=== PATIENT | female | born 1975 | race Caucasian/White ===

== ENCOUNTER → 2016-12-19 | Outpatient (CLI) | payer OTHER ==
[~2016-12-19] MED LIST: CITA20TA4 PO; LEVO100T7 PO; METR500T PO
[2016-12-22 14:26] LABS: HEPATITIS C VIRAL RNA BY PCR <15 NOT DETECTED IU/ML (<15); HEPATITIS C VIRAL RNA(LOG) PCR <1.18 NOT DETECTED LOG IU/ML (<1.18)
== END | disposition home or self-care (01) ==
LOC: C.LAB1850 15:25
PROVIDERS: ATTEND Internal Medicine Infectious Disease
DX: B19.20 Unspecified viral hepatitis C without hepatic coma (principal)

== ENCOUNTER 2017-09-28 09:08 | Emergency (ER) | payer OTHER ==
[~2017-09-28] VITALS: Ht 167.6 cm; Wt 89.8 kg
[2017-09-28 09:13] VITALS: TEMP 37; Ht 167.6 cm; Wt 89.8 kg
[2017-09-28 09:23] VITALS: O2SAT 94
[2017-09-28] MEDS ORDERED: LEVO125T5 PO (09:40)
[2017-09-28] MEDS ORDERED: LORA0.5T12 PO (09:40)
[2017-09-28 09:53] LABS: MEAN CELL VOLUME 86.3 fL (80-100); MEAN CORPUSCULAR HEMOGLOBIN 28.8 pg (25-34); MEAN CORPUSCULAR HGB CONC 33.3 g/dl (32-36); MEAN PLATELET VOLUME 10.9 fL (7.4-10.4); PLATELET COUNT 213 K/uL (130-400); RED CELL DISTRIBUTION WIDTH CV 14.2 % (11.5-14.5); RED CELL DISTRIBUTION WIDTH SD 44.4 fL (36.4-46.3); WHITE BLOOD COUNT 6.94 K/uL (4.8-10.8)
--- NOTE | 2017-09-28 09:55 | EMERGENCY ROOM VISIT NOTE ---
History Report prepared by Jojo: Juan Larry Under the Supervision of: Dr. Alex Hart M.D. First contact with patient: 09:31 Chief Complaint: ANXIETY Stated Complaint: ANXIETYCHEST/SHOULDER PAIN History of Present Illness The patient is a 42 year old female who presents to the Emergency Room with complaints of left sided chest and shoulder pain that she has been experiencing intermittently for the past week. The patient described her chest/shoulder pain as a "tightness" and "pressure." The episodes would last for about 15 minutes until taking a Lorazepam, which would improve the symptoms. She has the Lorazepam for anxiety. The patient did not notice that the chest pain onset with exertion, and the pain could onset when she was simply sitting at work. She added that she could have been mildly short of breath, because the pain would improve when she stepped outside to take a couple deep breaths. She denies any long trips recently. She also denies any personal history of cardiac illness or blood clots. His mother did have a heart attack (at 50 years of age) and brain aneurysm. She has never had any cardiac work-up herself. Source of History: patient Onset: 1 week Position: chest (left), shoulder (left) Quality: pressure, other (tightness) Timing: intermittent Modifying Factors (Relieving): other (Lorazepam) Review of Systems See HPI for pertinent positives & negatives. A total of 10 systems reviewed and were otherwise negative. Past Medical & Surgical Medical Problems: (1) History of anxiety Surgical Problems: (1) Cholecystectomy planned History of anxiety Family History FH: heart disease Social History Smoking Status: Light Tobacco Smoker Drug Use: none Occupation Status: employed Current/Historical Medications Scheduled Levothyroxine Sodium (Levothyroxine Sodium), 125 MCG PO DAILY Lorazepam (Lorazepam), 0.5 MG PO NEEDED Scheduled PRN Lorazepam (Ativan), 1 MG PO TID PRN for Anxiety/Agitation Allergies Coded Allergies: No Known Allergies (Verified Allergy, Unknown, 06/29/03) Physical Exam Vital Signs Date Time Temp Pulse Resp B/P (MAP) Pulse Ox O2 Delivery O2 Flow Rate FiO2 09/28/17 10:09 97 18 141/91 96 Room Air 09/28/17 09:47 120 09/28/17 09:23 94 Room Air 09/28/17 09:13 37.0 108 18 142/84 98 Room Air Physical Exam GENERAL: Patient is anxious appearing, in no acute distress HEENT: No acute trauma, normocephalic atraumatic, mucous membranes moist, no nasal congestion, no scleral icterus. NECK: No stridor, no adenopathy, no meningismus, trachea is midline. LUNGS: Clear to auscultation bilaterally, no wheeze, no rhonchi, breath sounds equal. HEART: Mildly tachycardic, no murmurs, regular rhythm. ABDOMEN: Soft, nontender, bowel sounds positive, no hernias, no peritonitis. EXTREMITIES: No cyanosis or edema, full range of motion of all the joints without pain or difficulty, no signs for acute trauma. NEUROLOGIC: Oriented x 3, no acute motor or sensory deficits, no focal weakness. SKIN: No rash, no jaundice, no diaphoresis. Medical Decision & Procedures ER Provider Diagnostic Interpretation: Radiology results as stated below per my review and radiologist interpretation: CHEST ONE VIEW PORTABLE CLINICAL HISTORY: Chest pain. COMPARISON STUDY: No previous studies for comparison. FINDINGS: Patient is rotated. Lung volumes are normal. Lungs are clear. No pneumothorax or pleural effusion is noted. Cardiac size is normal. Mediastinal contours are normal. There is no evidence for pulmonary edema. IMPRESSION: No acute cardiopulmonary findings. Electronically signed by: Reji Gilliam M.D. 09/28/2017 9:54 AM Dictated Date/Time: 09/28/2017 9:53 AM Laboratory Results 09/28/17 09:34 09/28/17 09:34 Test 09/28/17 09:34 09/28/17 10:07 Red Blood Count 4.52 M/uL (4.2-5.4) Mean Corpuscular Volume 86.3 fL (80-100) Mean Corpuscular Hemoglobin 28.8 pg (25-34) Mean Corpuscular Hemoglobin Concent 33.3 g/dl (32-36) RDW Standard Deviation 44.4 fL (36.4-46.3) RDW Coefficient of Variation 14.2 % (11.5-14.5) Mean Platelet Volume 10.9 fL (7.4-10.4) Prothrombin Time 10.1 SECONDS (9.0-12.0) Prothromb Time International Ratio 1.0 (0.9-1.1) Activated Partial Thromboplast Time 26.6 SECONDS (21.0-31.0) Partial Thromboplastin Ratio 1.0 Anion Gap 10.0 mmol/L (3-11) Est Creatinine Clear Calc Drug Dose 97.6 ml/min Estimated GFR () 99.4 Estimated GFR (Non- 85.8 BUN/Creatinine Ratio 10.4 (10-20) Calcium Level 8.7 mg/dl (8.5-10.1) Total Bilirubin 0.4 mg/dl (0.2-1) Aspartate Amino Transf (AST/SGOT) 24 U/L (15-37) Alanine Aminotransferase (ALT/SGPT) 48 U/L (12-78) Alkaline Phosphatase 99 U/L (45-117) Troponin I < 0.015 ng/ml (0-0.045) Total Protein 7.8 gm/dl (6.4-8.2) Albumin 3.8 gm/dl (3.4-5.0) Globulin 4.0 gm/dl (2.5-4.0) Albumin/Globulin Ratio 1.0 (0.9-2) Bedside D-Dimer 242 ng/mlFEU (0-450) Laboratory results reviewed by me. ECG Per My Interpretation Indication: chest pain Rate (beats per minute): 105 Rhythm: sinus tachycardia Findings: other (No PVCs, No ST elevation or depression) ED Course 09: The patient was evaluated in room B3B. A complete history and physical exam was performed. 1024: Reevaluated the patient. Discussed results and discharge instructions: she verbalized understanding and agreement. The patient is ready for discharge. Medical Decision Differential diagnosis includes; anxiety, musculoskeletal pain, pulmonary embolism, aortic dissection, pneumonia, pneumothorax, cardiac ischemia. There is no leukocytosis or concerning anemia. No significant electrolyte abnormality, kidney failure or hepatitis. There is no coagulopathy. EKG shows a sinus tachycardia, no acute ischemia. Cardiac enzyme testing 1 is not consistent with acute cardiac injury. Chest x-ray does not show mediastinal widening, pneumonia or pneumothorax. D-dimer testing is negative. With a negative d-dimer and my low suspicion for PE, I will stop the workup for this diagnosis. The patient presents with a week of intermittent chest pain which responds to Ativan. She has a history of anxiety. She seemed anxious during our evaluation. She has not had any exertional symptoms. Her pain comes on often at rest. Patient was reassured by her testing. I think it is reasonable for her to be discharged. I did prescribe a few Ativan to use for anxiety. She will talk with her family doctor's office for a follow-up appointment. I did suggest a stress test for even further cardiac workup. If she has any exertional symptoms , worsening pain or worsening symptoms, she will report back for reassessment. [place] Drug Monitoring Program Search Results: no issues identified Medication Reconcilliation Current Medication List: was personally reviewed by me Blood Pressure Screening Patient's blood pressure: Elevated blood pressure Blood pressure disposition: Referred to PCP Impression Primary Impression: Left sided chest pain Additional Impression: Anxiety Scribe Attestation The scribe's documentation has been prepared under my direction and personally reviewed by me in its entirety. I confirm that the note above accurately reflects all work, treatment, procedures, and medical decision making performed by me. Departure Information Dispostion Home / Self-Care Prescriptions Lorazepam (ATIVAN) 1 Mg Tab 1 MG PO TID Y for Anxiety/Agitation, #10 TAB Prov: Alex Hart M.D. 09/28/17 Referrals No Doctor, Assigned (PCP) Forms HOME CARE DOCUMENTATION FORM, IMPORTANT VISIT INFORMATION Patient Instructions My [facility] Additional Instructions talk with your [facility] md for a check up and possible stress test may use ativan 1 tab as needed for anxiety return for worsening symptoms, if feeling suicidal return for any exertional pain or trouble breathing heart testing today was all ok Problem Qualifiers
[2017-09-28 10:05] LABS: PTT PATIENT 26.6 SECONDS (21.0-31.0)
[2017-09-28 10:06] LABS: ALBUMIN 3.8 gm/dl (3.4-5.0); ALT/SGPT 48 U/L (12-78); AST/SGOT 24 U/L (15-37); BLOOD UREA NITROGEN 9 mg/dl (7-18); CALCIUM 8.7 mg/dl (8.5-10.1); CARBON DIOXIDE 22 mmol/L (21-32); CREATININE 0.83 mg/dl (0.60-1.20); GLUCOSE 143 mg/dl (70-99); POTASSIUM 3.6 mmol/L (3.5-5.1); SODIUM 138 mmol/L (136-145)
[2017-09-28 10:11] LABS: ALKALINE PHOSPHATASE 99 U/L (45-117); TOTAL PROTEIN 7.8 gm/dl (6.4-8.2)
[2017-09-28] MEDS ORDERED: ATV/1 PO (10:33)
[2017-09-28 11:13] VITALS: BP 131/74; PULSE 85; O2SAT 97
== END 2017-09-28 11:37 | disposition home or self-care (01) ==
LOC: C.EDB 09:10
DX: R07.9 Chest pain, unspecified (principal); F41.9 Anxiety disorder, unspecified; M25.512 Pain in left shoulder; F17.200 Nicotine dependence, unspecified, uncomplicated

== ENCOUNTER 2019-03-13 20:11 | Observation (INO) ==
[2019-03-13] MEDS ORDERED: HALOPERIDOL LACTATE 5 MG/ML 1 ML VIAL IM STA (21:07)
[2019-03-13] MEDS ORDERED: LORazepam 2 MG/ML VIAL (IM USE) IM STA (21:07)
[2019-03-13] MEDS ORDERED: LORazepam 1 MG TAB SL STA (21:08)
[2019-03-13] MEDS ORDERED: HALOPERIDOL 10 MG TABLET PO STA (21:08)
[2019-03-13] MEDS ORDERED: BENZTROPINE MESYLATE 1 MG/ML 2 ML AMP IM STA (21:11)
[2019-03-13 21:37] LABS: Appearance Urine Clear (Clear); Bilirubin Urine Negative (Negative); Blood Urine Negative (Negative); Color Urine Yellow; Glucose Urine UA 1+ (Negative); Ketones Urine Negative (Negative); Leukocyte Esterase Urine Negative (Negative); Nitrite Urine Negative (Negative); Protein Urine Negative (Negative); Specific Gravity Urine 1.012 (1.000-1.030); Urobilinogen Urine Negative (Negative)
[2019-03-13 22:04] LABS: Amphetamines+Metham, Urine Neg (Neg); Barbiturates, Urine Neg (Neg); Benzodiazepine, Urine Neg (Neg); Cocaine, Urine Neg (Neg); MDMA (Ecstacy), Urine Neg (Neg); Methadone, Urine Neg (Neg); Opiate, Urine Neg (Neg); Phencyclidine, Urine Neg (Neg)
[2019-03-13 22:14] LABS: Basophils # (auto) 0.02 K/uL (0-0.2); Basophils % (auto) 0.2 %; Eosinophils # (auto) 0.01 K/uL (0-0.5); Eosinophils % (auto) 0.1 %; Hematocrit (blood only) 34.1 % (37-47); Hemoglobin 10.7 g/dL (12.0-16.0); Immature Granulocytes # (auto) 0.02 K/uL (0.00-0.02); Immature Granulocytes % (auto) 0.2 %; Lymphocytes # (auto) 0.84 K/uL (1.2-3.4); Lymphocytes % (auto) 8.6 %; Mean Corpuscular Hgb Conc 31.4 g/dL (32-36); Mean Corpuscular Volume 76.6 fL (80-100); Mean Platelet Volume 11.1 fL (7.4-10.4); Monocytes % (auto) 4.1 %; Neutrophils # (auto) 8.48 K/uL (1.4-6.5); Neutrophils % (auto) 86.8 %; Platelet Count 277 K/uL (130-400); RDW Coefficient of Variation 16.8 % (11.5-14.5); RDW Standard Deviation 47.7 fL (36.4-46.3); Red Blood Count 4.45 M/uL (4.2-5.4); White Blood Count 9.77 K/uL (4.8-10.8)
--- NOTE | 2019-03-13 22:33 | CT Scan Report ---
CT SCAN OF THE BRAIN WITHOUT IV CONTRAST CLINICAL HISTORY: Change in mental status. COMPARISON STUDY: No priors. TECHNIQUE: Unenhanced axial CT scan of the brain is performed from the vertex to the skull base. A d ose lowering technique was utilized adhering to the principles of ALARA. The patient was scanned twic e due to motion artifact. CT DOSE: 1074.96 mGy.cm FINDINGS: Brain parenchyma: The brain parenchyma is normal in appearance. There is no hemorrhage, mass effect, or evidence of acute territorial ischemia by CT criteria. Franklin-white matter differentiation is preser milagros. No extra-axial fluid collection is seen. Ventricles, sulci, cisterns: Normal in configuration. Intracranial vasculature: The visualized intracranial vasculature at the skull base is normal in appe arance. Calvarium: Unremarkable. Sinuses and mastoids: The visualized paranasal sinuses are clear. The mastoid air cells are well pneu matized. Orbits: The bony orbits are grossly intact. IMPRESSION: There is no hemorrhage, mass effect, or evidence of acute territorial ischemia by CT eneida herrera. Electronically signed by: Alex Anderson M.D. 03/13/2019 10:32 PM
[2019-03-13 22:35] LABS: Albumin Level 3.8 gm/dl (3.4-5.0); BUN Creatinine Ratio 7.8 (10-20); Calcium 8.3 mg/dl (8.5-10.1); Creatinine Clr Calc Pharmacy 69.1 ml/min; Est GFR (African American) 63.8; Est GFR (Non-African American) 55.1; Potassium 3.1 mmol/L (3.5-5.1)
[2019-03-13 22:44] LABS: Acetaminophen < 2 ug/ml (10-30); Salicylate < 1.7 mg/dl (2.8-20)
[2019-03-13 22:45] LABS: Albumin Globulin Ratio 0.9 (0.9-2); Bilirubin,Total 0.4 mg/dl (0.2-1); Globulin 4.1 gm/dl (2.5-4.0); Total Protein 7.9 gm/dl (6.4-8.2)
[2019-03-13] MEDS ORDERED: SODIUM CHLORIDE 0.9% 1000ML 250 ML IV ONE (22:59)
[2019-03-13] MEDS ORDERED: SODIUM CHLORIDE 0.9% 1000ML 500 ML IV ONE (22:59)
[2019-03-13 23:29] LABS: Allen Test POS (Pos); Base Excess ABG -1.6 mEq/L (-9-1.8); HCO3 ABG 22 mmol/L (19-24); Oxygen Saturation ABG 97.8 % (90-95); PCO2 ABG 31 mmHg (35-46); PO2 ABG 96 mm/Hg (80-95); pH ABG 7.46 (7.35-7.45)
[2019-03-13 23:59] LABS: Beta-Hydroxybutyrate 1.47 mg/dl (0.2-2.81)
[2019-03-14] MEDS: POTASSIUM CHLORIDE / WTR 10 MEQ/100 ML PLCT IV SCH ×2 (00:22→01:11)
[2019-03-14] MEDS: SODIUM CHLORIDE 0.9% 1000ML 1,000 ML IV SCH ×2 (00:22→01:12)
[2019-03-14] MEDS ORDERED: POTASSIUM CHLORIDE 20 MEQ TABCR PO STA (00:27)
[2019-03-14] MEDS ORDERED: BENZTROPINE MESYLATE 1 MG/ML 2 ML AMP IV STA (02:06)
--- NOTE | 2019-03-14 02:06 | Emergency Department Note ---
Entered by Antwan Pearce acting as a scribe for Devaughn Bhatia MD History of Present Illness General Chief complaint: Mental Health Evaluation Time Seen by Provider: 03/13/19 20:55 Source: patient, family (brother) and other (psych case management) History of Present Illness Onset (ago): day(s) (today) Location: head Pain Consistency: + constant Quality: + other (paranoia) Associated symptoms: + other (Positive for a decreased amount of sleep. Negative for suicidal ideations and homicidal ideations.) The patient is a 43 year old female who presents to the emergency department with complaints of constant paranoia beginning today. Per psych assistant case manager, the patient was brought in by police. The patient states that she is paranoid and she believes that people at work are trying to get her to lose her job. She notes that she does not feel safe at her workplace because people are trying to make her feel crazy. She reports that her computer and phone are being hacked and she states that her identity has been stolen on [employer]. The patient states that she has not been getting a lot of sleep lately. Per assistant case manager, the patient does not have any SI/HI. Per brother, the patient has been having increased paranoia for the last 6 days. He notes that the patient has not had any similar episodes of paranoia in the past. 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) Anxiety no meds Hypothyroidism Left sided abdominal pain Surgical History History of cholecystectomy History of dilatation and curettage History of tonsillectomy and adenoidectomy Family History Mother Family history of diabetes mellitus Family hx colonic polyps Other No family history of adverse response to anesthesia Social History Preferred Language: Telugu Communication Ability: Effective Vp Genetic Required: No Beliefs That Will Affect Care: None Current Living Situation: Family and Significant Other Current Living Situation Comment: Lives with daughter and significant other Feels Safe at Home: Yes Smoking Status: Never smoker Second Hand Exposure: No ; Hx Alcohol Use: No Hx Substance Use: No Review of Systems See HPI for pertinent positives & negatives. and A total of 10 systems reviewed and were otherwise negative Physical Exam Vital Signs Vital Signs - 24 hr 03/13/19 20:21 03/13/19 22:30 03/14/19 00:03 Temperature 36.6 C Temperature Source Oral Sepsis Recent Fever Within 48 Hours No Sepsis New/Unexplained Change in Mental Status No Sepsis Action Taken by Nursing No Action Required Pulse Rate 115 H Pulse Rate [Finger] 93 H 82 Pulse Rhythm Regular Pulse Rhythm [Finger] Regular Regular Pulse Strength Normal Pulse Strength [Finger] Normal Respiratory Rate 18 18 16 Respiratory Effort / Characteristics Non-Labored Spontaneous Non-Labored Spontaneous Non-Labored Spontaneous Respiratory Depth Normal Normal Normal Respiratory Pattern Regular Regular Regular Blood Pressure 181/85 H Blood Pressure [Left Arm] 123/62 131/85 Blood Pressure Mean 117 Blood Pressure Mean [Left Arm] 82 100 Blood Pressure Position Sitting Blood Pressure Position [Left Arm] Lying Pulse Oximetry 97 97 92 Oxygen Delivery Method Room Air Room Air Room Air 03/14/19 01:58 Temperature Temperature Source Sepsis Recent Fever Within 48 Hours Sepsis New/Unexplained Change in Mental Status Sepsis Action Taken by Nursing Pulse Rate Pulse Rate [Finger] 108 H Pulse Rhythm Pulse Rhythm [Finger] Pulse Strength Pulse Strength [Finger] Respiratory Rate 18 Respiratory Effort / Characteristics Non-Labored Spontaneous Respiratory Depth Normal Respiratory Pattern Regular Blood Pressure Blood Pressure [Left Arm] 127/84 Blood Pressure Mean Blood Pressure Mean [Left Arm] 98 Blood Pressure Position Blood Pressure Position [Left Arm] Pulse Oximetry 100 Oxygen Delivery Method Room Air GENERAL: Awake, alert, noncooperative, flight of thought, kicking, fighting, punching. HENT: Normocephalic, atraumatic. Oropharynx unremarkable. EYES: Normal conjunctiva. Sclera non-icteric. NECK: Supple. No nuchal rigidity. FROM. No JVD. RESPIRATORY: Clear to auscultation. CARDIAC: Regular rate, normal rhythm. Extremities warm and well perfused. Pulses equal. ABDOMEN: Soft, non-distended. No tenderness to palpation. No rebound or guarding. No masses. RECTAL: Deferred. MUSCULOSKELETAL: Chest examination reveals no tenderness. The back is symmetrical on inspection without obvious abnormality. There is no CVA tenderness to palpation. No joint edema. LOWER EXTREMITIES: Calves are equal size bilaterally and non-tender. No edema. No discoloration. NEURO: Normal sensorium. No sensory or motor deficits noted. SKIN: No rash or jaundice noted. Course 2100: The patient was evaluated in room A5. A complete history and physical exam was performed. 2133: The patient was sedated. 2304: I rechecked the patient. 0230: The patient was signed out to Dr. Ho at the change of shift. Administered Medications Discontinued Medications Benztropine Mesylate (Cogentin) 2 mg IM NOW STA Stop: 03/13/19 21:12 Last Admin: 03/13/19 22:10 Dose: 2 mg Documented by: [id number] Haloperidol (Haldol) 10 mg PO NOW STA Stop: 03/13/19 21:09 Last Admin: 03/13/19 21:30 Dose: Not Given Documented by: [id number] Haloperidol Lactate (Haldol) 10 mg IM NOW STA Stop: 03/13/19 21:08 Last Admin: 03/13/19 21:30 Dose: 10 mg Documented by: [id number] Sodium Chloride (Nss 1000ml) 500 mls @ 999 mls/hr IV .Q31M ONE Stop: 03/13/19 23:29 Last Admin: 03/14/19 00:23 Dose: 999 mls/hr Documented by: [id number] Sodium Chloride (Nss 1000ml) 1,000 mls @ 999 mls/hr IV .Q1H1M AKANKSHA Stop: 03/14/19 00:59 Last Admin: 03/14/19 01:12 Dose: 999 mls/hr Documented by: [id number] Infusion: 03/14/19 01:12 Dose: 999 mls/hr Documented by: [id number] Admin: 03/14/19 00:22 Dose: 999 mls/hr Documented by: [id number] Sodium Chloride (Nss 1000ml) 250 mls @ 999 mls/hr IV .Q16M ONE Stop: 03/13/19 23:14 Last Infusion: 03/14/19 00:40 Dose: 0 mls/hr Documented by: [id number] Admin: 03/14/19 00:23 Dose: 999 mls/hr Documented by: [id number] Potassium Chloride (K Damian / Wtr) 10 meq in 100 mls @ 100 mls/hr IV Q1H AKANKSHA Stop: 03/14/19 00:59 Last Infusion: 03/14/19 01:58 Dose: 0 mls/hr Documented by: [id number] Admin: 03/14/19 01:11 Dose: 100 mls/hr Documented by: [id number] Infusion: 03/14/19 01:11 Dose: 100 mls/hr Documented by: [id number] Admin: 03/14/19 00:22 Dose: 100 mls/hr Documented by: [id number] Lorazepam (Ativan) 2 mg IM NOW STA Stop: 03/13/19 21:08 Last Admin: 03/13/19 21:30 Dose: 2 mg Documented by: [id number] Lorazepam (Ativan) 2 mg SL NOW STA Stop: 03/13/19 21:09 Last Admin: 03/13/19 21:30 Dose: Not Given Documented by: [id number] Potassium Chloride (Klor-Con M20) 40 meq PO NOW STA Stop: 03/14/19 00:28 Last Admin: 03/14/19 01:48 Dose: 40 meq Documented by: [id number] Medical Decision Making Differential Diagnosis Differential diagnosis: Etiologies such as psychiatric disorder, infection, hypoglycemia, electrolyte abnormalities, cardiac sources, intracerebral event, toxicological process, neurologic disorder, as well as others were entertained. Medical Records Attestation: I reviewed the patient's medical records. Home Medications Current Medication List: was personally reviewed by me Laboratory Data Attestation: I reviewed the patient's lab results. Result diagrams: 03/13/19 22:02 03/13/19 22:02 Lab Results 03/13/19 03/13/19 03/13/19 Range/Units 20:30 20:30 22:02 WBC 9.77 (4.8-10.8) K/uL RBC 4.45 (4.2-5.4) M/uL Hgb 10.7 L (12.0-16.0) g/dL Hct 34.1 L (37-47) % MCV 76.6 L (80-100) fL MCH 24.0 L (25-34) pg MCHC 31.4 L (32-36) g/dL RDW Std Deviation 47.7 H (36.4-46.3) fL RDW Coeff of John 16.8 H (11.5-14.5) % Plt Count 277 (130-400) K/uL MPV 11.1 H (7.4-10.4) fL Immature Gran % (Auto) 0.2 % Neut % (Auto) 86.8 % Lymph % (Auto) 8.6 % [place] % (Auto) 4.1 % Eos % (Auto) 0.1 % Baso % (Auto) 0.2 % Immature Gran # (Auto) 0.02 (0.00-0.02) K/uL Neut # (Auto) 8.48 H (1.4-6.5) K/uL Lymph # (Auto) 0.84 L (1.2-3.4) K/uL [place] # (Auto) 0.40 (0.11-0.59) K/uL Eos # (Auto) 0.01 (0-0.5) K/uL Baso # (Auto) 0.02 (0-0.2) K/uL ABG pH (7.35-7.45) ABG pCO2 (35-46) mmHg ABG pO2 (80-95) mm/Hg ABG HCO3 (19-24) mmol/L ABG O2 Saturation (90-95) % ABG Base Excess (-9-1.8) mEq/L Rainer Test (Pos) Barometric Pressure mm/Hg Oxygen Given Sodium (136-145) mmol/L Potassium (3.5-5.1) mmol/L Chloride (98-107) mmol/L Carbon Dioxide (21-32) mmol/L Anion Gap (3-11) BUN (7-18) mg/dl Creatinine (0.6-1.2) mg/dl Est Cr Clr Drug Dosing ml/min Est GFR ( Amer) Est GFR (Non-Af Amer) BUN/Creatinine Ratio (10-20) Glucose (70-99) mg/dl Calcium (8.5-10.1) mg/dl Total Bilirubin (0.2-1) mg/dl AST (15-37) U/L ALT (12-78) U/L Alkaline Phosphatase (45-117) U/L Total Protein (6.4-8.2) gm/dl Albumin (3.4-5.0) gm/dl Globulin (2.5-4.0) gm/dl Albumin/Globulin Ratio (0.9-2) Beta-Hydroxybutyric Acd (0.2-2.81) mg/dl TSH (0.300-4.500) uIu/ml Urine Color Yellow Urine Appearance Clear (Clear) Urine pH 6.0 (4.5-7.5) Ur Specific [place] 1.012 (1.000-1.030) Urine Protein Negative (Negative) Urine Glucose (UA) 1+ H (Negative) Urine Ketones Negative (Negative) Urine Blood Negative (Negative) Urine Nitrite Negative (Negative) Urine Bilirubin Negative (Negative) Urine Urobilinogen Negative (Negative) Ur Leukocyte Esterase Negative (Negative) Salicylates (2.8-20) mg/dl Urine Opiates Screen Neg (Neg) Ur Methadone, Qual Neg (Neg) Acetaminophen (10-30) ug/ml Urine Barbiturates Neg (Neg) Ur Phencyclidine (PCP) Neg (Neg) U Amphetamin/Meth Scrn Neg (Neg) MDMA (Ecstasy) Screen Neg (Neg) U Benzodiazepines Scrn Neg (Neg) Ur Cocaine Metabolite Neg (Neg) U Marijuana (THC) Screen Neg (Neg) Ethyl Alcohol mg/dL (0-3) mg/dl 03/13/19 03/13/19 03/13/19 Range/Units 22:02 22:02 22:02 WBC (4.8-10.8) K/uL RBC (4.2-5.4) M/uL Hgb (12.0-16.0) g/dL Hct (37-47) % MCV (80-100) fL MCH (25-34) pg MCHC (32-36) g/dL RDW Std Deviation (36.4-46.3) fL RDW Coeff of John (11.5-14.5) % Plt Count (130-400) K/uL MPV (7.4-10.4) fL Immature Gran % (Auto) % Neut % (Auto) % Lymph % (Auto) % [place] % (Auto) % Eos % (Auto) % Baso % (Auto) % Immature Gran # (Auto) (0.00-0.02) K/uL Neut # (Auto) (1.4-6.5) K/uL Lymph # (Auto) (1.2-3.4) K/uL [place] # (Auto) (0.11-0.59) K/uL Eos # (Auto) (0-0.5) K/uL Baso # (Auto) (0-0.2) K/uL ABG pH (7.35-7.45) ABG pCO2 (35-46) mmHg ABG pO2 (80-95) mm/Hg ABG HCO3 (19-24) mmol/L ABG O2 Saturation (90-95) % ABG Base Excess (-9-1.8) mEq/L Rainer Test (Pos) Barometric Pressure mm/Hg Oxygen Given Sodium 136 (136-145) mmol/L Potassium 3.1 L (3.5-5.1) mmol/L Chloride 102 (98-107) mmol/L Carbon Dioxide 16 L (21-32) mmol/L Anion Gap 18.0 H (3-11) BUN 9 (7-18) mg/dl Creatinine 1.19 (0.6-1.2) mg/dl Est Cr Clr Drug Dosing 69.1 ml/min Est GFR ( Amer) 63.8 Est GFR (Non-Af Amer) 55.1 BUN/Creatinine Ratio 7.8 L (10-20) Glucose 299 H (70-99) mg/dl Calcium 8.3 L (8.5-10.1) mg/dl Total Bilirubin 0.4 (0.2-1) mg/dl AST 18 (15-37) U/L ALT 31 (12-78) U/L Alkaline Phosphatase 103 (45-117) U/L Total Protein 7.9 (6.4-8.2) gm/dl Albumin 3.8 (3.4-5.0) gm/dl Globulin 4.1 H (2.5-4.0) gm/dl Albumin/Globulin Ratio 0.9 (0.9-2) Beta-Hydroxybutyric Acd 1.47 (0.2-2.81) mg/dl TSH 1.970 (0.300-4.500) uIu/ml Urine Color Urine Appearance (Clear) Urine pH (4.5-7.5) Ur Specific [place] (1.000-1.030) Urine Protein (Negative) Urine Glucose (UA) (Negative) Urine Ketones (Negative) Urine Blood (Negative) Urine Nitrite (Negative) Urine Bilirubin (Negative) Urine Urobilinogen (Negative) Ur Leukocyte Esterase (Negative) Salicylates < 1.7 L (2.8-20) mg/dl Urine Opiates Screen (Neg) Ur Methadone, Qual (Neg) Acetaminophen < 2 L (10-30) ug/ml Urine Barbiturates (Neg) Ur Phencyclidine (PCP) (Neg) U Amphetamin/Meth Scrn (Neg) MDMA (Ecstasy) Screen (Neg) U Benzodiazepines Scrn (Neg) Ur Cocaine Metabolite (Neg) U Marijuana (THC) Screen (Neg) Ethyl Alcohol mg/dL < 3.0 (0-3) mg/dl 03/13/19 03/13/19 Range/Units 23:15 23:15 WBC (4.8-10.8) K/uL RBC (4.2-5.4) M/uL Hgb (12.0-16.0) g/dL Hct (37-47) % MCV (80-100) fL MCH (25-34) pg MCHC (32-36) g/dL RDW Std Deviation (36.4-46.3) fL RDW Coeff of John (11.5-14.5) % Plt Count (130-400) K/uL MPV (7.4-10.4) fL Immature Gran % (Auto) % Neut % (Auto) % Lymph % (Auto) % [place] % (Auto) % Eos % (Auto) % Baso % (Auto) % Immature Gran # (Auto) (0.00-0.02) K/uL Neut # (Auto) (1.4-6.5) K/uL Lymph # (Auto) (1.2-3.4) K/uL [place] # (Auto) (0.11-0.59) K/uL Eos # (Auto) (0-0.5) K/uL Baso # (Auto) (0-0.2) K/uL ABG pH 7.46 H (7.35-7.45) ABG pCO2 31 L (35-46) mmHg ABG pO2 96 H (80-95) mm/Hg ABG HCO3 22 (19-24) mmol/L ABG O2 Saturation 97.8 H (90-95) % ABG Base Excess -1.6 (-9-1.8) mEq/L Rainer Test POS (Pos) Barometric Pressure 730.9 mm/Hg Oxygen Given ROOM AIR Sodium (136-145) mmol/L Potassium (3.5-5.1) mmol/L Chloride (98-107) mmol/L Carbon Dioxide (21-32) mmol/L Anion Gap (3-11) BUN (7-18) mg/dl Creatinine (0.6-1.2) mg/dl Est Cr Clr Drug Dosing ml/min Est GFR ( Amer) Est GFR (Non-Af Amer) BUN/Creatinine Ratio (10-20) Glucose (70-99) mg/dl Calcium (8.5-10.1) mg/dl Total Bilirubin (0.2-1) mg/dl AST (15-37) U/L ALT (12-78) U/L Alkaline Phosphatase (45-117) U/L Total Protein (6.4-8.2) gm/dl Albumin (3.4-5.0) gm/dl Globulin (2.5-4.0) gm/dl Albumin/Globulin Ratio (0.9-2) Beta-Hydroxybutyric Acd Cancelled (0.2-2.81) mg/dl TSH (0.300-4.500) uIu/ml Urine Color Urine Appearance (Clear) Urine pH (4.5-7.5) Ur Specific [place] (1.000-1.030) Urine Protein (Negative) Urine Glucose (UA) (Negative) Urine Ketones (Negative) Urine Blood (Negative) Urine Nitrite (Negative) Urine Bilirubin (Negative) Urine Urobilinogen (Negative) Ur Leukocyte Esterase (Negative) Salicylates (2.8-20) mg/dl Urine Opiates Screen (Neg) Ur Methadone, Qual (Neg) Acetaminophen (10-30) ug/ml Urine Barbiturates (Neg) Ur Phencyclidine (PCP) (Neg) U Amphetamin/Meth Scrn (Neg) MDMA (Ecstasy) Screen (Neg) U Benzodiazepines Scrn (Neg) Ur Cocaine Metabolite (Neg) U Marijuana (THC) Screen (Neg) Ethyl Alcohol mg/dL (0-3) mg/dl Imaging Data Radiologist's Impression: Radiology results as stated below per my review and the radiologist's interpretation: CT SCAN OF THE BRAIN WITHOUT IV CONTRAST FINDINGS: Brain parenchyma: The brain parenchyma is normal in appearance. There is no hemorrhage, mass effect, or evidence of acute territorial ischemia by CT criteria. [place]-white matter differentiation is preserved. No extra-axial fluid collection is seen. Ventricles, sulci, cisterns: Normal in configuration. Intracranial vasculature: The visualized intracranial vasculature at the skull base is normal in appearance. Calvarium: Unremarkable. Sinuses and mastoids: The visualized paranasal sinuses are clear. The mastoid air cells are well pneumatized. Orbits: The bony orbits are grossly intact. IMPRESSION: There is no hemorrhage, mass effect, or evidence of acute territorial ischemia by CT criteria. Electronically signed by: Alex Anderson M.D. 03/13/2019 10:32 PM Blood Pressure Blood Pressure Findings: Normal blood pressure Blood Pressure Disposition: did not require urgent referral MDM Narrative This is a 43-year-old female who presents the emergency department acutely paranoid. The patient is talking in circles and not making any sense however she is also non-cooperative. For this reason I felt it best to sedate the patient so that we could obtain laboratory work as well as scans. She was given 10 of Haldol and 2 of Ativan here in the emergency department. Repeat examination revealed improvement in the patient's symptoms. After talking with the patient's family the patient is a diabetic. It appears that the patient has not been sleeping over the past week or so. She was placed in a bed and laboratory work was able to be obtained. The patient's potassium was found to be low therefore she was given IV potassium along with normal saline bolus. I was originally concerned that the patient may be in DKA however a ABG was obtained which showed the patient to not be acidotic. I suspect her low CO2 was actually from hyperventilation. She also has a normal CAT scan of the head. I did discuss the case with the hospitalist service who was kind enough to see the patient. She was also independently evaluated by case management as well as 3 S. Impression & Plan Mood disorder, Acute hypokalemia, Acute hyperglycemia Discharge Plan Visit Data Chief Complaint: Mental Health Evaluation ED Provider: Devaughn Bhatia Discharge Problem: Mood disorder, Acute hypokalemia, Acute hyperglycemia Patient Disposition: Still a Patient Forms Stand Alone Forms: My [facility] [employer] Prescriptions Prescriptions: No Action levothyroxine 125 mcg Tablet 125 mcg PO QAM RF: 0 Referrals Referrals: Felicitas Mojica CRNP [Primary Care Provider] - The scribe's documentation has been prepared under my direction and personally reviewed by me in its entirety. I confirm that the note above accurately reflects all work, treatment, procedures, and medical decision making performed by me.
--- NOTE | 2019-03-14 02:20 | History & Physical Report ---
Date of Service March 14, 2019 Assessment & Plan (1) Anxiety: 43-year-old female was admitted on 14 March 2019 with concerns for paranoia and delusions. Anxiety, insomnia, possible paranoia and delusions: Patient is quite vague on her history, though relates significant work stressors over the past 7 to 10 days. Reported concerns that she is having her computer and phone monitored potentially by co-workers. Significant insomnia during this time as well. History of anxiety but no noted history of paranoia symptoms. - In ED, afebrile, briefly tachycardic and hypertensive (during her period of agitation), with normal room SpO2. WBC 9. UA with 1+ glucose. Negative on UDS, salicylates, and Tylenol. CT head with no acute findings. - In ED, was given Haldol 10 mg and Ativan 2 mg both IM. Also treated with Cogentin, potassium, and NS IVF boluses. - Will check a repeat BMP as well as vitamin B12 level and Lyme testing on morning labs. Consulted psychiatry. On 1:1. - Uses as needed Ativan at home. Further use per psychiatry recommendations. Anemia: Admit hemoglobin 10.7, MCV 76. Comparison is 13.0. No reported history of recent bleeding or bruising. Perhaps has iron deficiency. Can be evaluated as an outpatient. Hypokalemia: Admit potassium 3.1. Replacement provided in ED. Recheck in a.m. Pre-diabetes, elevated anion gap: October 2018 HbA1c was 6.0. Admit glucose 299 and AG 18. Serum bicarb 16. No urine ketones. ABG notes respiratory alkalosis, likely from hyperventilation. Beta hydroxybutyric acid level is normal. - In ED, treated with IV fluids. - Will check A1c and BMP on AM labs. Ongoing medical issues - Hypothyroidism: Admit TSH normal. Continue home levothyroxine. - Question of a history of hepatitis C infection. History of constipation. Code status: Full code. Diet: Regular. DVT prophy: Lovenox. PT/OT: Deferred. Disbo: Admitted for observation to [facility]. (2) Anemia: (3) Prediabetes: (4) Hypothyroidism: History of Present Illness Primary Care Provider: JAYNA Drew 43-year-old female was brought in by the police for concerns for paranoia and delusions. At the time of this H&P, the patient is s/p Haldol and Ativan for acute agitation. She is not presently sedated, though likely she is likely far more calm than she was on arrival. Patient does not volunteer any information whatsoever and is quite vague in all of her answers. Some of the history is from her boyfriend who is at bedside. - By report, the patient called the police earlier today because she was concerned that her coworkers were out to get her. Per the ED report, patient also made statements such as "people at work are trying to get me to lose my job" as well as "people are trying to make me feel crazy". Per the ED physicia n, the patient was very agitated on arrival and repeatedly stated that her coworkers were trying to get her to lose her job. Apparently she stated that she was being video recorded at work as well. - For this H&P on repeated questioning, patient (and boyfriend as adjunct information) says that there is a lot of stress going on at work for the past 7 to 10 days. It seems that either a coworker or an bankruptcy legal assistant has not been available, increasing the patient's workload such that she has been on a lot of overtime. She also is only been getting about 2 hours of sleep per night. Patient eventually did acknowledge that she thinks her coworkers may be listening in on her phone conversations and may have hacked her computer. She says she received a [employer] request about a week ago, acknowledged it, and ever since someone may have taken over her account. Patient denies any physical pain and only states that she needs to use the bathroom. She denied any thoughts of hurting herself, others, any visual or auditory hallucinations, or any history of feeling similar to the way she does right now. She says that she has taken "half a pill" of Ativan a couple of times in the past week for anxiety. She otherwise denies any acute medication use or history of substance abuse. Per patient and medical records: - Past medical history includes pre-diabetes, hypothyroidism, anxiety, constipation, question of a history of hepatitis C. - Past surgical history includes cholecystectomy, D&C, tonsillectomy and adenoidectomy. - Social history includes tobacco use. Denies alcohol and substance abuse. Allergies Allergy/AdvReac Type Severity Reaction Status Date / Time No Known Allergies Allergy Unknown Verified 02/28/19 15:15 Home Medications Home Medications Medication Instructions Recorded Confirmed Type levothyroxine 125 mcg PO QAM 12/26/18 02/28/19 History Past Med/Surg History Family History Mother Family history of diabetes mellitus Family hx colonic polyps Other No family history of adverse response to anesthesia Social History Preferred Language: Pashto Communication Ability: Effective Ink Grinder Required: No Beliefs That Will Affect Care: None Current Living Situation: Significant Other Current Living Situation Comment: Lives with daughter and significant other Feels Safe at Home: Yes Smoking Status: Former smoker Tobacco Type: cigarettes ; Do You Dip or Chew Tobacco: No ; Second Hand Exposure: No ; Hx Alcohol Use: Yes Alcohol type: beer Hx Substance Use: No Review of Systems Review of Systems: Unable to obtain ROS due to patient's current mental state as well as post sedation medications. She does deny any focal pains as well as any recent nausea/vomiting/diarrhea. Physical Exam Physical Exam: GENERAL: Awake, alert, speaks easily and comfortably but does not volunteer any information, does not appear in any physical distress HENT: Normocephalic, atraumatic. Oropharynx unremarkable. EYES: Normal conjunctiva. Sclera non-icteric. Pupils about 4 mm and equally reactive bilaterally. NECK: Inspection normal. Non-tender. Supple and full ROM. No nuchal rigidity. CARDIAC: +S1S2 regular tachycardia, no murmurs. RESPIRATORY: Clear to auscultation. No wheezes or rales. Normal respiratory effort. GI: +BS, soft, non-distended. No tenderness to palpation. No rebound or guarding. EXTREMITIES: No pedal edema or calf tenderness. Moving all extremities naturally and easily. NEURO: No gross neuro deficits. No present tremor. Psych: Good eye contact during interview. She answers questions with brief couple word answers and frequently will look towards her boyfriend as if she was looking for some level of confirmation in her answers. Most of what she says is intelligible. Answers are very vague but not necessarily tangential. She does repeat themes. Her mood/affect seems a bit on edge but otherwise calm and cooperative. She denies SI or HI. Results & Data Vital Signs (Past 12 Hours) Vital Signs Temp Pulse Pulse Resp BP BP Pulse Ox 03/14/19 01:58 108 H 18 127/84 100 03/14/19 00:03 82 16 131/85 92 03/13/19 22:30 93 H 18 123/62 97 03/13/19 20:21 36.6 C 115 H 18 181/85 H 97 Laboratory Results 03/13/19 03/13/19 03/13/19 Range/Units 23:15 23:15 22:02 WBC (4.8-10.8) K/uL RBC (4.2-5.4) M/uL Hgb (12.0-16.0) g/dL Hct (37-47) % MCV (80-100) fL MCH (25-34) pg MCHC (32-36) g/dL RDW Std Deviation (36.4-46.3) fL RDW Coeff of John (11.5-14.5) % Plt Count (130-400) K/uL MPV (7.4-10.4) fL Immature Gran % (Auto) % Neut % (Auto) % Lymph % (Auto) % Phelps % (Auto) % Eos % (Auto) % Baso % (Auto) % Immature Gran # (Auto) (0.00-0.02) K/uL Neut # (Auto) (1.4-6.5) K/uL Lymph # (Auto) (1.2-3.4) K/uL Phelps # (Auto) (0.11-0.59) K/uL Eos # (Auto) (0-0.5) K/uL Baso # (Auto) (0-0.2) K/uL ABG pH 7.46 H (7.35-7.45) ABG pCO2 31 L (35-46) mmHg ABG pO2 96 H (80-95) mm/Hg ABG HCO3 22 (19-24) mmol/L ABG O2 Saturation 97.8 H (90-95) % ABG Base Excess -1.6 (-9-1.8) mEq/L Rainer Test POS (Pos) Barometric Pressure 730.9 mm/Hg Oxygen Given ROOM AIR Sodium (136-145) mmol/L Potassium (3.5-5.1) mmol/L Chloride (98-107) mmol/L Carbon Dioxide (21-32) mmol/L Anion Gap (3-11) BUN (7-18) mg/dl Creatinine (0.6-1.2) mg/dl Est Cr Clr Drug Dosing ml/min Est GFR ( Amer) Est GFR (Non-Af Amer) BUN/Creatinine Ratio (10-20) Glucose (70-99) mg/dl Calcium (8.5-10.1) mg/dl Total Bilirubin (0.2-1) mg/dl AST (15-37) U/L ALT (12-78) U/L Alkaline Phosphatase (45-117) U/L Total Protein (6.4-8.2) gm/dl Albumin (3.4-5.0) gm/dl Globulin (2.5-4.0) gm/dl Albumin/Globulin Ratio (0.9-2) Beta-Hydroxybutyric Acd Cancelled (0.2-2.81) mg/dl TSH (0.300-4.500) uIu/ml Urine Color Urine Appearance (Clear) Urine pH (4.5-7.5) Ur Specific Rosepine (1.000-1.030) Urine Protein (Negative) Urine Glucose (UA) (Negative) Urine Ketones (Negative) Urine Blood (Negative) Urine Nitrite (Negative) Urine Bilirubin (Negative) Urine Urobilinogen (Negative) Ur Leukocyte Esterase (Negative) Salicylates (2.8-20) mg/dl Urine Opiates Screen (Neg) Ur Methadone, Qual (Neg) Acetaminophen (10-30) ug/ml Urine Barbiturates (Neg) Ur Phencyclidine (PCP) (Neg) U Amphetamin/Meth Scrn (Neg) MDMA (Ecstasy) Screen (Neg) U Benzodiazepines Scrn (Neg) Ur Cocaine Metabolite (Neg) U Marijuana (THC) Screen (Neg) Ethyl Alcohol mg/dL < 3.0 (0-3) mg/dl 03/13/19 03/13/19 03/13/19 Range/Units 22:02 22:02 22:02 WBC 9.77 (4.8-10.8) K/uL RBC 4.45 (4.2-5.4) M/uL Hgb 10.7 L (12.0-16.0) g/dL Hct 34.1 L (37-47) % MCV 76.6 L (80-100) fL MCH 24.0 L (25-34) pg MCHC 31.4 L (32-36) g/dL RDW Std Deviation 47.7 H (36.4-46.3) fL RDW Coeff of John 16.8 H (11.5-14.5) % Plt Count 277 (130-400) K/uL MPV 11.1 H (7.4-10.4) fL Immature Gran % (Auto) 0.2 % Neut % (Auto) 86.8 % Lymph % (Auto) 8.6 % Phelps % (Auto) 4.1 % Eos % (Auto) 0.1 % Baso % (Auto) 0.2 % Immature Gran # (Auto) 0.02 (0.00-0.02) K/uL Neut # (Auto) 8.48 H (1.4-6.5) K/uL Lymph # (Auto) 0.84 L (1.2-3.4) K/uL Phelps # (Auto) 0.40 (0.11-0.59) K/uL Eos # (Auto) 0.01 (0-0.5) K/uL Baso # (Auto) 0.02 (0-0.2) K/uL ABG pH (7.35-7.45) ABG pCO2 (35-46) mmHg ABG pO2 (80-95) mm/Hg ABG HCO3 (19-24) mmol/L ABG O2 Saturation (90-95) % ABG Base Excess (-9-1.8) mEq/L Rainer Test (Pos) Barometric Pressure mm/Hg Oxygen Given Sodium 136 (136-145) mmol/L Potassium 3.1 L (3.5-5.1) mmol/L Chloride 102 (98-107) mmol/L Carbon Dioxide 16 L (21-32) mmol/L Anion Gap 18.0 H (3-11) BUN 9 (7-18) mg/dl Creatinine 1.19 (0.6-1.2) mg/dl Est Cr Clr Drug Dosing 69.1 ml/min Est GFR ( Amer) 63.8 Est GFR (Non-Af Amer) 55.1 BUN/Creatinine Ratio 7.8 L (10-20) Glucose 299 H (70-99) mg/dl Calcium 8.3 L (8.5-10.1) mg/dl Total Bilirubin 0.4 (0.2-1) mg/dl AST 18 (15-37) U/L ALT 31 (12-78) U/L Alkaline Phosphatase 103 (45-117) U/L Total Protein 7.9 (6.4-8.2) gm/dl Albumin 3.8 (3.4-5.0) gm/dl Globulin 4.1 H (2.5-4.0) gm/dl Albumin/Globulin Ratio 0.9 (0.9-2) Beta-Hydroxybutyric Acd 1.47 (0.2-2.81) mg/dl TSH 1.970 (0.300-4.500) uIu/ml Urine Color Urine Appearance (Clear) Urine pH (4.5-7.5) Ur Specific Rosepine (1.000-1.030) Urine Protein (Negative) Urine Glucose (UA) (Negative) Urine Ketones (Negative) Urine Blood (Negative) Urine Nitrite (Negative) Urine Bilirubin (Negative) Urine Urobilinogen (Negative) Ur Leukocyte Esterase (Negative) Salicylates < 1.7 L (2.8-20) mg/dl Urine Opiates Screen (Neg) Ur Methadone, Qual (Neg) Acetaminophen < 2 L (10-30) ug/ml Urine Barbiturates (Neg) Ur Phencyclidine (PCP) (Neg) U Amphetamin/Meth Scrn (Neg) MDMA (Ecstasy) Screen (Neg) U Benzodiazepines Scrn (Neg) Ur Cocaine Metabolite (Neg) U Marijuana (THC) Screen (Neg) Ethyl Alcohol mg/dL (0-3) mg/dl 03/13/19 03/13/19 Range/Units 20:30 20:30 WBC (4.8-10.8) K/uL RBC (4.2-5.4) M/uL Hgb (12.0-16.0) g/dL Hct (37-47) % MCV (80-100) fL MCH (25-34) pg MCHC (32-36) g/dL RDW Std Deviation (36.4-46.3) fL RDW Coeff of John (11.5-14.5) % Plt Count (130-400) K/uL MPV (7.4-10.4) fL Immature Gran % (Auto) % Neut % (Auto) % Lymph % (Auto) % Phelps % (Auto) % Eos % (Auto) % Baso % (Auto) % Immature Gran # (Auto) (0.00-0.02) K/uL Neut # (Auto) (1.4-6.5) K/uL Lymph # (Auto) (1.2-3.4) K/uL Phelps # (Auto) (0.11-0.59) K/uL Eos # (Auto) (0-0.5) K/uL Baso # (Auto) (0-0.2) K/uL ABG pH (7.35-7.45) ABG pCO2 (35-46) mmHg ABG pO2 (80-95) mm/Hg ABG HCO3 (19-24) mmol/L ABG O2 Saturation (90-95) % ABG Base Excess (-9-1.8) mEq/L Rainer Test (Pos) Barometric Pressure mm/Hg Oxygen Given Sodium (136-145) mmol/L Potassium (3.5-5.1) mmol/L Chloride (98-107) mmol/L Carbon Dioxide (21-32) mmol/L Anion Gap (3-11) BUN (7-18) mg/dl Creatinine (0.6-1.2) mg/dl Est Cr Clr Drug Dosing ml/min Est GFR ( Amer) Est GFR (Non-Af Amer) BUN/Creatinine Ratio (10-20) Glucose (70-99) mg/dl Calcium (8.5-10.1) mg/dl Total Bilirubin (0.2-1) mg/dl AST (15-37) U/L ALT (12-78) U/L Alkaline Phosphatase (45-117) U/L Total Protein (6.4-8.2) gm/dl Albumin (3.4-5.0) gm/dl Globulin (2.5-4.0) gm/dl Albumin/Globulin Ratio (0.9-2) Beta-Hydroxybutyric Acd (0.2-2.81) mg/dl TSH (0.300-4.500) uIu/ml Urine Color Yellow Urine Appearance Clear (Clear) Urine pH 6.0 (4.5-7.5) Ur Specific Rosepine 1.012 (1.000-1.030) Urine Protein Negative (Negative) Urine Glucose (UA) 1+ H (Negative) Urine Ketones Negative (Negative) Urine Blood Negative (Negative) Urine Nitrite Negative (Negative) Urine Bilirubin Negative (Negative) Urine Urobilinogen Negative (Negative) Ur Leukocyte Esterase Negative (Negative) Salicylates (2.8-20) mg/dl Urine Opiates Screen Neg (Neg) Ur Methadone, Qual Neg (Neg) Acetaminophen (10-30) ug/ml Urine Barbiturates Neg (Neg) Ur Phencyclidine (PCP) Neg (Neg) U Amphetamin/Meth Scrn Neg (Neg) MDMA (Ecstasy) Screen Neg (Neg) U Benzodiazepines Scrn Neg (Neg) Ur Cocaine Metabolite Neg (Neg) U Marijuana (THC) Screen Neg (Neg) Ethyl Alcohol mg/dL (0-3) mg/dl Medications Administered Discontinued Medications Benztropine Mesylate (Cogentin) 2 mg IM NOW STA Stop: 03/13/19 21:12 Last Admin: 03/13/19 22:10 Dose: 2 mg Documented by: [id number] Haloperidol (Haldol) 10 mg PO NOW STA Stop: 03/13/19 21:09 Last Admin: 03/13/19 21:30 Dose: Not Given Documented by: [id number] Haloperidol Lactate (Haldol) 10 mg IM NOW STA Stop: 03/13/19 21:08 Last Admin: 03/13/19 21:30 Dose: 10 mg Documented by: [id number] Sodium Chloride (Nss 1000ml) 500 mls @ 999 mls/hr IV .Q31M ONE Stop: 03/13/19 23:29 Last Infusion: 03/14/19 02:01 Dose: 0 mls/hr Documented by: [id number] Admin: 03/14/19 00:23 Dose: 999 mls/hr Documented by: [id number] Sodium Chloride (Nss 1000ml) 1,000 mls @ 999 mls/hr IV .Q1H1M AKANKSHA Stop: 03/14/19 00:59 Last Infusion: 03/14/19 02:01 Dose: 0 mls/hr Documented by: [id number] Admin: 03/14/19 01:12 Dose: 999 mls/hr Documented by: [id number] Infusion: 03/14/19 01:12 Dose: 999 mls/hr Documented by: [id number] Admin: 03/14/19 00:22 Dose: 999 mls/hr Documented by: [id number] Sodium Chloride (Nss 1000ml) 250 mls @ 999 mls/hr IV .Q16M ONE Stop: 03/13/19 23:14 Last Infusion: 03/14/19 00:40 Dose: 0 mls/hr Documented by: [id number] Admin: 03/14/19 00:23 Dose: 999 mls/hr Documented by: [id number] Potassium Chloride (K Damian / Wtr) 10 meq in 100 mls @ 100 mls/hr IV Q1H AKANKSHA Stop: 03/14/19 00:59 Last Infusion: 03/14/19 01:58 Dose: 0 mls/hr Documented by: [id number] Admin: 03/14/19 01:11 Dose: 100 mls/hr Documented by: [id number] Infusion: 03/14/19 01:11 Dose: 100 mls/hr Documented by: [id number] Admin: 03/14/19 00:22 Dose: 100 mls/hr Documented by: [id number] Lorazepam (Ativan) 2 mg IM NOW STA Stop: 03/13/19 21:08 Last Admin: 03/13/19 21:30 Dose: 2 mg Documented by: [id number] Lorazepam (Ativan) 2 mg SL NOW STA Stop: 03/13/19 21:09 Last Admin: 03/13/19 21:30 Dose: Not Given Documented by: [id number] Potassium Chloride (Klor-Con M20) 40 meq PO NOW STA Stop: 03/14/19 00:28 Last Admin: 03/14/19 01:48 Dose: 40 meq Documented by: [id number] Code Status & VTE Plan Code Status Full code VTE Prophylaxis Plan VTE Prophylaxis will be ordered: Yes Supervising Physician Co-Signing Physician Notes Patient seen and examined, chart reviewed, case discussed with Dr. Beltran and I agree with his assessment and plan as documented above. Briefly, patient is a 43yo C female presenting with anxiety, disorganized thinking. Patient reports that she has been under incredible stress at work due to work load, staffing issues and interpersonal relationships. She has had to work a lot of overtime this week and has not been sleeping but 2-3 hours per night. Details of the story were not completely clear but it seems that she thinks someone hacked into her facebook account and tried to steal her identity, people are following her and filming her at work and that her co-workers are setting her up to be blamed for some financial indiscretions and trying to get her to lose her job. Patient said that these issues came to a head today at work. She felt very anxious and paranoid. She was brought into the ER by the police. She denies SI/HI or AH/VH. She has history of anxiety which is well controlled with occasional use of Ativan. No additional psychiatric diagnoses. No history of thought disorders. On exam she is afebrile, hypertensive and tachycardic. She is resting comfortably in bed, appears slightly anxious Skin - intact, no rash HEENT - NC/AT, PERRL, EOMI, MMM, neck supple, no meningeal signs Heart - +S1/S2, regular, no m/r/g Lungs - CTA, no rales/rhonchi/wheezes Abd- +BS, soft, NT/ND Ext - no edema Neuro - no focal deficits Labs and images reviewed. Significant for microcytic anemia, respiratory alkalosis, hypokalemia and high anion gap with HCO3 of 16, Utox negative CT head negative Assessment/Plan: 43yo C female with history of anxiety, hypothyroidism presenting with acute agitation/anxiety/paranoia, possible psychotic episode with disorganized thinking in setting of increased life stressors, decreased sleep. Patient does not appear to be encephalopathic, little concern for infectious etiology. -Admit to medical floor with 1:1 observation -Check B12, TSH, Lyme -Consult Psychiatry - appreciate assistance wtih this case -remainder of plan as above PG Care Time/CCT Total # of Minutes Spent Total Time Spent with Patient: Total time spent is greater than 50% in coordination of care (as documented) at patient's floor/unit and/or counseling patient: Resident Activity Tracking Resident Involvement: Resident Care Provided Care Provided: Adult Hospital Medicine
[2019-03-14] MEDS ORDERED: ACETAMINOPHEN 325 MG TAB PO PRN (04:07)
[2019-03-14 05:51] LABS: Prothrombin Time 10.6 Seconds (9.0-12.0)
[2019-03-14 06:08] LABS: BUN Creatinine Ratio 10.8 (10-20); Calcium 7.9 mg/dl (8.5-10.1); Creatinine Clr Calc Pharmacy 134.5 ml/min; Est GFR (African American) 127.6; Est GFR (Non-African American) 110.1; Potassium 3.7 mmol/L (3.5-5.1)
[2019-03-14 06:25] LABS: Estimated Average Glucose 137 mg/dl; Hemoglobin A1C 6.4 % (4.5-5.6)
[2019-03-14] MEDS ORDERED: LEVOTHYROXINE SODIUM 125 MCG TABLET PO SCH (06:30)
[2019-03-14 06:37] LABS: Lyme Ab IgG w/WB Rflx Negative (Negative); Lyme Ab IgM w/WB Rflx Negative (Negative)
[2019-03-14 08:48] LABS: Hematocrit (blood only) 32.3 % (37-47); Hemoglobin 10.4 g/dL (12.0-16.0); Mean Corpuscular Hgb Conc 32.2 g/dL (32-36); Mean Corpuscular Volume 75.8 fL (80-100); Mean Platelet Volume 10.5 fL (7.4-10.4); Platelet Count 267 K/uL (130-400); RDW Standard Deviation 47.1 fL (36.4-46.3); Red Blood Count 4.26 M/uL (4.2-5.4); White Blood Count 9.62 K/uL (4.8-10.8)
[2019-03-14] MEDS ORDERED: ENOXAPARIN INJ 40 MG/0.4 ML SYR SQ SCH (09:00)
[2019-03-14 09:02] LABS: Ferritin 3.9 ng/ml (8-388)
[2019-03-14] MEDS ORDERED: DOCUSATE SODIUM 100 MG CAP PO SCH (09:45)
--- NOTE | 2019-03-14 10:00 | Psychiatric Consultation ---
Date of Consultation March 14, 2019 Impression / Recommendations Impression As this is the patient's first known episode of this presentation, and development of a primary thought disorder at this age is rather unlikely with no prior report of mood disorder, a thorough medical work-up is recommended in order to rule out possible medical explanation for the patient's symptoms. While this is being done, we will attempt to gather collateral information from the patient's supports to further clarify the possible presence of a psychiatric disorder. While it is possible that her symptoms are stress-induced and highly related to anxiety level - other causes should be ruled out primarily. It would be unusual for this to be the development of a primary thought disorder at the patient's current age. We are recommending treatment for psychosis, NOS at this time - differential includes, but is not limited to, brief psychotic episodes, mood disorder with psychotic features, anxiety disorder with ruminations of psychotic degree, substance-induced psychosis, possible primary thought disorder, and of course possible underlying medical condition. Patient is limited in her willingness for this provider to reach out to supports to corroborate the reported history. Jeff reports primary concern of insomnia and poor eating habits, but does not (in the presence of the patient) argue with the history being provided. Verbal permission was granted by patient for this provider to speak with jeff in room, will obtain NICHELLE and hopefully speak with jeff 1:[address] Cristina Summers was directly involved in review and discussion of the patient's case and participated in medical decision making regarding treatment recommendations. (1) Unspecified psychosis: 03/14 - Current concern for psychosis, NOS - differential includes: brief psychotic episode, mood disorder with psychotic features, anxiety disorder with ruminations of psychotic degree, substance-induced psychosis, and possible primary thought disorder. Medical etiology should be ruled out, as no known psychiatric history to clearly explain the onset of these symptoms - Recommend ongoing consideration of medical causes for patient's rather acute presentation of reported delusions and paranoia. Patient appearing calmer but remains hypervigilant and continues to believe she is being targeted at work (which may or may not be the case) - Refusing medications to address her anxiety, as this may be a cause of her distorted thoughts. Previously offered escitalopram, but continues to decline - Recommending inpatient psychiatric admission once possible medical etiology is ruled out, to further clarify diagnosis and provider appropriate treatment and safety planning - 302 warrant is on patient's chart; she should not be permitted to leave the hospital AMA Psychosis type: unspecified psychosis type Qualified Code(s): F29 - Unspecified psychosis not due to a substance or known physiological condition Protective Factors Assessment Employed: Yes ([employer] department) CPT Code Initial Consultation: 67253 Psych History Identifying Data 43-year-old female admitted medically on 03/14/19 after being brought to the ED by police. 302 warrant on chart. Patient had presented with paranoia and belief that people are targeting her. Patient has reportedly not been sleeping well and has some laboratory abnormalities. As she has no previous psychiatric history of such symptoms, patient was admitted medically to rule out medical etiology. Psychiatric consultation was requested to evaluate patient for "anxiety, concern for paranoia/delusions." Information is gathered from hospital documentation, petitioning statements, patient's supports and the patient herself - some aspects of history remain unclear. Chief Complaint "Yesterday was a really bad day. Things were just going wrong at work." History of Present Illness Saúl Sawyer is a 43-year-old female admitted medically on 03/14/19 after presenting to the ED via police with paranoia and concerning suspicions. Pt reportedly called 911 from work reporting that she "didn't feel safe." Pt's brother requested to prepare a 302 petitioning statement due to concerns for his sister's behavior and disorganization. It is reported patient has not been sleeping well for the past 1.5 weeks, and has been demonstrating concerning behavior. During evaluation in the ED, the patient was uncooperative and agitated, reportedly throwing herself on the floor. Pt required restraints and was given haloperidol 10mg and lorazepam 2mg. A medical admission was pursued, as patient has no history of previous psychotic behavior, and some medical abnormalities on laboratory work-up. Given lack of history to clearly suggest psychiatric etiology, additional work-up was pursued to rule out medical causes. Psychiatric consultation was requested to evaluate patient for anxiety and paranoia/delusions. ED documentation and 302 petitioning statements were reviewed. In addition to brother's statement, ED psychiatric pillowcase maker had also completed a statement: "Pt. presents to E.D. via police. Pt. called police from work and stated she thought people at work were out to get her. Pt. presents to E.D. paranoid, delusional. Thought process disorganized. Pt. is screaming with out of control behavior. Pt. yelling people are trying to kill her. Pt. throwing herself on the ground. Pt. making statements that dont make sense. Pt. a danger to self and had to be chemically and physically restrained by physician order for patient safety." Patient was seen today for psychiatric evaluation and was cooperative with interview. Pt verbalized permission for her fiance to remain in the room for the duration of our conversation, and brother did leave the room for a period of time. Pt gave verbal permission and later signed NICHELLE for this provider to speak independently with her fiance, Leonid. Pt states that she had a very difficult day at work yesterday, feeling she was being targeted by co-workers. She states that she has been under extreme stress for the past 1.5 weeks. She reports a coworker took time off, which increased her workload. As her stress level increased, she became concerned that "people were messing with me. Weird things were happening." Pt states she was asked an "odd question" by a co-worker about her aunt's cancer treatment - "she knew she was sick, but why would she care. Just more weird questions and stuff like that." Pt believes people were taking things things off her desk and "moving stuff in my drawer." She reports the motivation was too "distract me, to get me messed up." Patient's fiance said, "she's been so worked up about her job that she hasn't been sleeping. In the last week and a half she may have been getting a couple hours a night." Pt states that as the week progressed, her concern for people "messing with me" continued. She reports believe that records of checks and avendaño flow were being intentionally adjusted - "to make me look bad, I think they're trying to get me fired." Pt states that she had had a meeting with her boss to discuss the discrepancies in the avendaño log - "and I told her about how I was feeling, that they set me up. They're manipulating this whole thing." Pt desires "not to name names." Pt states she called 911 as she felt particularly threatened yesterday. Pt admits to experiencing an episode of this previously, in 09/2018 when her daughter was sick and required surgery. "They were targeting me then, even while I was having personal issues." She states that she believed the behavior resolved after her daughter started feeling well again and the patient was missing less work. Pt reports similar issues have not occurred at other jobs or during periods of high-stress that were unrelated to a work situation. Pt admits to a history of "I don't know, some anxiety here and there." She states she had previously used lorazepam prn to manage anxiety. She was prescribed Lexapro by her primary care STEVEDORING SUPERVISOR, which she admits she never started as "it doesn't fix the problem, the problem is work." Pt does state; however, that her brother recently started taking Lexapro and has noticed a positive response. Pt does not feel that she requires inpatient psychiatric admission and is interested in knowing when she will be discharged. Pt denies SI, HI, SIB, A/V hallucinations, jose ramon/hypomania, other symptoms more suggestive of a bipolar presentation, OCD, PTSD, eating disorder, and other specific psychiatric symptoms. Past Psychiatric History Previous Psych History: None known; reports of mild anxiety previously treated with only prn lorazepam. Current Psychiatric Diagnosis: Anxiety Outpatient Services: None Previous Psych Admissions: None History of Previous Suicide Attempt: No Describe Attempts in the Past: None Past Medication Trials: Per documentation: 1. Ativan 2. Prescribed Lexapro - never took Allergies Allergy/AdvReac Type Severity Reaction Status Date / Time No Known Allergies Allergy Unknown Verified 02/28/19 15:15 Home Medications Home Medications Medication Instructions Recorded Confirmed Type levothyroxine 125 mcg PO QAM 12/26/18 02/28/19 History Family History No known family history of psychiatric conditions, substance abuse concerns, or suicide attempts/completions Substance Abuse History Pt reports she quit smoking 6 months ago. She reports consuming 1-2 alcoholic beverages about twice a year, reporting consuming "a beer" on 03/07/19, most recent prior to this was in July 2018. Pt denies experimentation with our regular use of illicit substances. She consumes one cup of coffee daily. 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) Anxiety no meds Hypothyroidism Left sided abdominal pain Surgical History History of cholecystectomy History of dilatation and curettage History of tonsillectomy and adenoidectomy Family History Mother Family history of diabetes mellitus Family hx colonic polyps Other No family history of adverse response to anesthesia Social History Preferred Language: Uzbek Communication Ability: Effective Direct Selling Counselor Required: No Beliefs That Will Affect Care: None Current Living Situation: Significant Other Current Living Situation Comment: Lives with daughter and significant other Feels Safe at Home: Yes Smoking Status: Never smoker Tobacco Type: cigarettes ; Do You Dip or Chew Tobacco: No ; Second Hand Exposure: No ; Hx Alcohol Use: Yes Alcohol type: beer Hx Substance Use: No Physical Exam Psychiatric: Orientation: alert, oriented x 3 and cooperative Apperance: appropriately dressed, appropriately groomed and appeared stated age Obese- appearing, female appearing restless, but in no acute distress. Ap propriately dressed in hospital gown with sweatpants underneath. Appropriately groomed, not malodorous. Level of hygiene and hydration appear adequate. Eye Contact: good eye contact Motor Behavior: + abnormal motor movements (restlessness, fidgeting) Speech: normal rate/rhythm/volume of speech Affect: + anxious affect and + irritable affect (when discussing specific work situations) Mood: + anxious mood ("Yeah, I'm worried, they're targeting me to lose my job.") Thought Process: goal directed thought process, + circumstantial thought process and + perseveration (hyperfocused on work situations in which she believes she is targeted ) Thought Content: + paranoid (believes being targeted at work, concerned phone/computer has been hacked), + cognitive distortions and + ideas of reference At this point, it is unclear if patient's concerns surrounding work and her devices being hacked is truthful information; however supports do not argue with statements. Would not escalate to true delusions just yet, as there may be underlying truth but discrepancy in regard to intent and patient's perception. Suicidal Thoughts: denies suicidal thoughts and denies suicidal intent Homicidal Thoughts: denies homicidal thoughts Hallucinations: no auditory hallucinations and no visual hallucinations Cognition: attention grossly intact and language grossly intact Estimated Intelligence: consistent with education level Insight: + impaired insight Judgement: + impaired judgement Vital Signs (Past 24 Hours): Last Vital Signs Temp 36.8 C 03/14/19 07:31 Pulse 116 H 03/14/19 07:31 Resp 18 03/14/19 07:31 BP 146/89 H 03/14/19 07:31 Pulse Ox 97 03/14/19 07:31 Review of Systems Constitutional: reports increased fatigue from difficulty sleeping Cardiovascular: reports chest pain and tachycardia with anxiety Respiratory: denied Gastrointestinal: reports recent episodes of constipation Neurological: denied Psychiatric: denies symptoms other than stated above Total of at least 10 systems reviewed, pertinent positives as above and in HPI. Results & Data Medications Administered Enoxaparin Sodium (Lovenox) 40 mg SQ Q24H [facility] Stop: 04/13/19 08:59 Last Admin: 03/14/19 08:32 Dose: Not Given Documented by: [id number] Levothyroxine Sodium (Synthroid) 125 mcg PO DAILYBB [facility] Stop: 04/13/19 06:29 Last Admin: 03/14/19 06:29 Dose: 125 mcg Documented by: [id number]
[2019-03-14] MEDS ORDERED: FERROUS SULFATE 325 MG TAB PO SCH (17:00)
[2019-03-14] MEDS ORDERED: LORazepam 1 MG TAB PO STA (17:58)
[2019-03-14] MEDS ORDERED: HALOPERIDOL DECANOATE INJ 50 MG/ML VIAL IM PRN (18:02)
[2019-03-14] MEDS ORDERED: QUETIAPINE FUMARATE 25 MG TABLET PO PRN (18:02)
--- NOTE | 2019-03-14 18:05 | Discharge Summary ---
Date of Service March 14, 2019 Admission HPI Per Admitting Provider 43-year-old female was brought in by the police for concerns for paranoia and delusions. At the time of this H&P, the patient is s/p Haldol and Ativan for acute agitation. She is not presently sedated, though likely she is likely far more calm than she was on arrival. Patient does not volunteer any information whatsoever and is quite vague in all of her answers. Some of the history is from her boyfriend who is at bedside. - By report, the patient called the police earlier today because she was concerned that her coworkers were out to get her. Per the ED report, patient also made statements such as "people at work are trying to get me to lose my job" as well as "people are trying to make me feel crazy". Per the ED physician, the patient was very agitated on arrival and repeatedly stated that her coworkers were trying to get her to lose her job. Apparently she stated that she was being video recorded at work as well. 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 It seems that either a coworker or an construction management assistant has not been available, increasing the patient's workload such that she has been on a lot of overtime. She also is only been getting about 2 hours of sleep per night. Patient eventually did acknowledge that she thinks her coworkers may be listening in on her phone conversations and may have hacked her computer. She says she received a [employer] request about a week ago, acknowledged it, and ever since someone may have taken over her account. Patient denies any physical pain and only states that she needs to use the bathroom. She denied any thoughts of hurting herself, others, any visual or auditory hallucinations, or any history of feeling similar to the way she does right now. She says that she has taken "half a pill" of Ativan a couple of times in the past week for anxiety. She otherwise denies any acute medication use or history of substance abuse. Per patient and medical records: - Past medical history includes pre-diabetes, hypothyroidism, anxiety, constipation, question of a history of hepatitis C. - Past surgical history includes cholecystectomy, D&C, tonsillectomy and adenoidectomy. - Social history includes tobacco use. Denies alcohol and substance abuse. Admission Exam Per Admitting Provider GENERAL: Awake, alert, speaks easily and comfortably but does not volunteer any information, does not appear in any physical distress HENT: Normocephalic, atraumatic. Oropharynx unremarkable. EYES: Normal conjunctiva. Sclera non-icteric. Pupils about 4 mm and equally reactive bilaterally. NECK: Inspection normal. Non-tender. Supple and full ROM. No nuchal rigidity. CARDIAC: +S1S2 regular tachycardia, no murmurs. RESPIRATORY: Clear to auscultation. No wheezes or rales. Normal respiratory effort. GI: +BS, soft, non-distended. No tenderness to palpation. No rebound or guarding. EXTREMITIES: No pedal edema or calf tenderness. Moving all extremities naturally and easily. NEURO: No gross neuro deficits. No present tremor. Psych: Good eye contact during interview. She answers questions with brief couple word answers and frequently will look towards her boyfriend as if she was looking for some level of confirmation in her answers. Most of what she says is intelligible. Answers are very vague but not necessarily tangential. She does repeat themes. Her mood/affect seems a bit on edge but otherwise calm and cooperative. She denies SI or HI. Principal Diagnosis Paranoia, Anxiety Discharge Exam General: Anxious appearing mid age female HEENT: NC/AT; PERRLA with EOMI; [place] conjunctiva, MMM. No erythema of posterior pharynx Neck: Supple and nontender Cardiac: Tachy on exam Lungs: CTA bilaterally Abdomen: Bowel normoactive X 4; Nontender to palpation Extremities: Warm. No edema present Neuro: No focal weakness Skin: No rash Discharge Data Allergies Allergy/AdvReac Type Severity Reaction Status Date / Time No Known Allergies Allergy Unknown Verified 02/28/19 15:15 Consultations 03/13/19 23:02 ED Decision to Admit Stat 03/14/19 04:07 Consult Psychiatry Routine Ordered Studies 03/13/19 21:10 CT head/brain wo con Stat Hospital Course (1) Anxiety: Pt. presented with anxiety/paranoia/delusions at admission. Required Cogentin/Haldol/Ativan in the ER for agitation. Psych consulted, recommended transfer to psych unit for further care. [address] Eub[address]. Pt. will be transferred to a psychiatric unit pending acceptance. (2) Anemia: Significant iron deficiency anemia noted on labs. Started ferrous sulfate 325 mg BID. FOBT pending collection. Will need to follow up with PCP for further evaluation. (3) Prediabetes: A1C was 6.4. Encouraged CCD and weight loss. (4) Hypothyroidism: Continued Levothyroxine 112 mcg daily. TSH was 1.97. Pt. is stable for transfer to psychiatric unit on 03/14/19. 302 form was completed by Dr. Eubanks. Total Time Total Time Spent Total Time Spent (In Minutes): >30 minutes Total Time Includes: Examination of the Patient, Discharge Planning, Medication Reconciliation, Communication With Other Providers and Other Discharge Plan Discharge Items Patient Disposition: Transfer Behavioral Health Fac Reason For Visit: ANXIETY,CONCERN FOR PARANOIA Discharge Diagnosis: Anxiety, Paranoia Condition: Critical Discharge Goals: Improve disease control Activity: As commented below Exercise/Sports: Gradually increase as tolerated Non-emergency contact: Primary Care Provider and Psychiatrist Call non-emergency contact if: you have any medication questions and your symptoms worsen Follow-up/Referrals: Felicitas Mojica CRNP [Primary Care Provider] - Diet: Regular Addtl Provider Instructions: 1. You will be transferred to another medical facility for further evaluation and care. 2. Iron deficiency anemia * Please take Ferrous sulfate 325 mg twice daily for treatment of anemia. * You will need to discuss further work up with your primary care provider. Prescriptions: New lorazepam [Ativan] 1 mg tablet 1 mg PO Q8H PRN (Reason: anxiety) Qty: 1 RF: 0 Continued levothyroxine 125 mcg Tablet 125 mcg PO QAM RF: 0 Stand-Alone Forms: [facility]/Other Patient Handouts: Prediabetes, Diabetes Meal Planning Discharge Orders: Discharge Order (Routine); Ordered 03/14/19 Ordered By: Clarita Leonardo Admission Data Admit Date/Time: 03/14/19 02:16 Attending Provider: Manjinder Eubanks Admit Provider: Rigoberto Beltran Primary Care Provider: Felicitas Mojica Other Providers: Debra Pollock ; Cristina Summers Service: Medical Other Interventions: Discharge Summary Assessment (RN) Last Done: 03/14/19 21:33 Pending Studies at Discharge: No DC Date/Time DO NOT enter until pt leaves facility: 03/14/19 23:20 Supervising Physician Co-Signing Physician Notes Attending Discharge Note and Attestation: Pt seen/examined, chart reviewed, care plan d/w YU Leonardo. I agree w/ the whipple components of her discharge documentation. 43yo female with no prior significant psychiatric history except perhaps mild anxiety who presented to [facility] with severe paranoid thoughts, delusions, recent difficulty sleeping, and work-related difficulties. She was brought to the hospital under a 302 warrant. Seen by psychiatry and diagnosed with psychosis NOS (difficult to determine the exact etiology/diagnosis at this time). She required intermittent haldol/ativan. On day of discharge I completed her 302 paperwork. Psych assisted with finding her inpatient psychiatric treatment (patient wanted to be placed somewhere other than [facility]). Medical work-up did not find a metabolic or infectious cause of her presenting symptoms. CT head, TSH, etc were normal. Discharge exam - gen - flat affect, anxious, repeats her sentences throughout the visit neck - no JVD or obvious goiter mouth - MMM heart - tachy, s1, s2, no murmur lungs - CTA b/l abd - soft ext - no edema psych - alert, awake, paranoid Manjinder Eubanks MD
[2019-03-14] MEDS ORDERED: HALOPERIDOL LACTATE 5 MG/ML 1 ML VIAL IM PRN (18:12)
--- NOTE | 2019-03-14 18:20 | Hospitalist Progress Note ---
Date of Service March 14, 2019 Assessment & Plan (1) Anxiety: - Presented with anxiety/paranoia/delusions at admission. - Required Cogentin/Haldol/Ativan in the ER for agitation. - Psych consulted, recommended transfer to psych unit for further care. - Seroquel 25 mg daily prn agitation. - Ativan 1 mg PO q8hr prn anxiety. - Haldol 5 mg IM prn agitation. - [address] Eubanks. - Pt. will be transferred to a psychiatric unit pending acceptance. (2) Anemia: - Significant iron deficiency anemia noted on labs. - Start ferrous sulfate 325 mg BID. - FOBT pending collection. - Will need to follow up with PCP for further evaluation. (3) Prediabetes: - A1C was 6.4. - Encourage CCD and weight loss. (4) Hypothyroidism: - Continue Levothyroxine 112 mcg daily. - TSH was 1.97. Dispo: Discharge to the [facility] vs. [facility] pending placement. Subjective Pt. was evaluated by psych, recommending transfer to psych unit. Pt. has requested to go to the [facility] vs. [facility]. She is agitated this evening after discussion regarding transfer and appears anxious. Review of Systems Review of Systems: Other (Limited review of systems obtained due to agitated state ) Physical Exam Physical Exam: General: Anxious appearing mid age female HEENT: NC/AT; PERRLA with EOMI; [place] conjunctiva, MMM. No erythema of posterior pharynx Neck: Supple and nontender Cardiac: Tachy on exam Lungs: CTA bilaterally Abdomen: Bowel normoactive X 4; Nontender to palpation Extremities: Warm. No edema present Neuro: No focal weakness Skin: No rash Results & Data Vital Signs (Past 12 Hours) Vital Signs Temp Pulse Resp BP Pulse Ox 03/14/19 15:23 36.6 C 119 H 18 150/96 H 95 03/14/19 07:31 36.8 C 116 H 18 146/89 H 97 Laboratory Results 03/14/19 03/14/19 03/14/19 Range/Units 05:25 05:19 05:19 WBC 9.62 (4.8-10.8) K/uL RBC 4.26 (4.2-5.4) M/uL Hgb 10.4 L (12.0-16.0) g/dL Hct 32.3 L (37-47) % MCV 75.8 L (80-100) fL MCH 24.4 L (25-34) pg MCHC 32.2 (32-36) g/dL RDW Std Deviation 47.1 H (36.4-46.3) fL RDW Coeff of John 17.0 H (11.5-14.5) % Plt Count 267 (130-400) K/uL MPV 10.5 H (7.4-10.4) fL Immature Gran % (Auto) % Neut % (Auto) % Lymph % (Auto) % [place] % (Auto) % Eos % (Auto) % Baso % (Auto) % Immature Gran # (Auto) (0.00-0.02) K/uL Neut # (Auto) (1.4-6.5) K/uL Lymph # (Auto) (1.2-3.4) K/uL Surry # (Auto) (0.11-0.59) K/uL Eos # (Auto) (0-0.5) K/uL Baso # (Auto) (0-0.2) K/uL PT (9.0-12.0) Seconds INR (0.9-1.1) ABG pH (7.35-7.45) ABG pCO2 (35-46) mmHg ABG pO2 (80-95) mm/Hg ABG HCO3 (19-24) mmol/L ABG O2 Saturation (90-95) % ABG Base Excess (-9-1.8) mEq/L Rainer Test (Pos) Barometric Pressure mm/Hg Oxygen Given Sodium (136-145) mmol/L Potassium (3.5-5.1) mmol/L Chloride (98-107) mmol/L Carbon Dioxide (21-32) mmol/L Anion Gap (3-11) BUN (7-18) mg/dl Creatinine (0.6-1.2) mg/dl Est Cr Clr Drug Dosing ml/min Est GFR ( Amer) Est GFR (Non-Af Amer) BUN/Creatinine Ratio (10-20) Glucose (70-99) mg/dl POC Glucose (70-99) Estimat Average Glucose mg/dl Hemoglobin A1c (4.5-5.6) % Calcium (8.5-10.1) mg/dl Iron 24 L (35-150) mcg/dl TIBC 398 (250-450) mcg/dl Transferrin 301 (200-360) mg/dl Transferrin % Sat 6 L (15-50) % Ferritin 3.9 L (8-388) ng/ml Total Bilirubin (0.2-1) mg/dl AST (15-37) U/L ALT (12-78) U/L Alkaline Phosphatase (45-117) U/L Total Protein (6.4-8.2) gm/dl Albumin (3.4-5.0) gm/dl Globulin (2.5-4.0) gm/dl Albumin/Globulin Ratio (0.9-2) Vitamin B12 (211-911) pg/ml Beta-Hydroxybutyric Acd (0.2-2.81) mg/dl TSH (0.300-4.500) uIu/ml Urine Color Urine Appearance (Clear) Urine pH (4.5-7.5) Ur Specific Isabela (1.000-1.030) Urine Protein (Negative) Urine Glucose (UA) (Negative) Urine Ketones (Negative) Urine Blood (Negative) Urine Nitrite (Negative) Urine Bilirubin (Negative) Urine Urobilinogen (Negative) Ur Leukocyte Esterase (Negative) Salicylates (2.8-20) mg/dl Urine Opiates Screen (Neg) Ur Methadone, Qual (Neg) Acetaminophen (10-30) ug/ml Urine Barbiturates (Neg) Ur Phencyclidine (PCP) (Neg) U Amphetamin/Meth Scrn (Neg) MDMA (Ecstasy) Screen (Neg) U Benzodiazepines Scrn (Neg) Ur Cocaine Metabolite (Neg) U Marijuana (THC) Screen (Neg) Ethyl Alcohol mg/dL (0-3) mg/dl RPR Pending Lyme Disease IgG Ab (Negative) Lyme Disease IgM Ab (Negative) 03/14/19 03/14/19 03/14/19 Range/Units 05:19 05:19 05:19 WBC (4.8-10.8) K/uL RBC (4.2-5.4) M/uL Hgb (12.0-16.0) g/dL Hct (37-47) % MCV (80-100) fL MCH (25-34) pg MCHC (32-36) g/dL RDW Std Deviation (36.4-46.3) fL RDW Coeff of John (11.5-14.5) % Plt Count (130-400) K/uL MPV (7.4-10.4) fL Immature Gran % (Auto) % Neut % (Auto) % Lymph % (Auto) % [place] % (Auto) % Eos % (Auto) % Baso % (Auto) % Immature Gran # (Auto) (0.00-0.02) K/uL Neut # (Auto) (1.4-6.5) K/uL Lymph # (Auto) (1.2-3.4) K/uL Surry # (Auto) (0.11-0.59) K/uL Eos # (Auto) (0-0.5) K/uL Baso # (Auto) (0-0.2) K/uL PT 10.6 (9.0-12.0) Seconds INR 1.0 (0.9-1.1) ABG pH (7.35-7.45) ABG pCO2 (35-46) mmHg ABG pO2 (80-95) mm/Hg ABG HCO3 (19-24) mmol/L ABG O2 Saturation (90-95) % ABG Base Excess (-9-1.8) mEq/L Rainer Test (Pos) Barometric Pressure mm/Hg Oxygen Given Sodium (136-145) mmol/L Potassium (3.5-5.1) mmol/L Chloride (98-107) mmol/L Carbon Dioxide (21-32) mmol/L Anion Gap (3-11) BUN (7-18) mg/dl Creatinine (0.6-1.2) mg/dl Est Cr Clr Drug Dosing ml/min Est GFR ( Amer) Est GFR (Non-Af Amer) BUN/Creatinine Ratio (10-20) Glucose (70-99) mg/dl POC Glucose (70-99) Estimat Average Glucose mg/dl Hemoglobin A1c (4.5-5.6) % Calcium (8.5-10.1) mg/dl Iron (35-150) mcg/dl TIBC (250-450) mcg/dl Transferrin (200-360) mg/dl Transferrin % Sat (15-50) % Ferritin (8-388) ng/ml Total Bilirubin (0.2-1) mg/dl AST (15-37) U/L ALT (12-78) U/L Alkaline Phosphatase (45-117) U/L Total Protein (6.4-8.2) gm/dl Albumin (3.4-5.0) gm/dl Globulin (2.5-4.0) gm/dl Albumin/Globulin Ratio (0.9-2) Vitamin B12 477 (211-911) pg/ml Beta-Hydroxybutyric Acd (0.2-2.81) mg/dl TSH (0.300-4.500) uIu/ml Urine Color Urine Appearance (Clear) Urine pH (4.5-7.5) Ur Specific Isabela (1.000-1.030) Urine Protein (Negative) Urine Glucose (UA) (Negative) Urine Ketones (Negative) Urine Blood (Negative) Urine Nitrite (Negative) Urine Bilirubin (Negative) Urine Urobilinogen (Negative) Ur Leukocyte Esterase (Negative) Salicylates (2.8-20) mg/dl Urine Opiates Screen (Neg) Ur Methadone, Qual (Neg) Acetaminophen (10-30) ug/ml Urine Barbiturates (Neg) Ur Phencyclidine (PCP) (Neg) U Amphetamin/Meth Scrn (Neg) MDMA (Ecstasy) Screen (Neg) U Benzodiazepines Scrn (Neg) Ur Cocaine Metabolite (Neg) U Marijuana (THC) Screen (Neg) Ethyl Alcohol mg/dL (0-3) mg/dl RPR Lyme Disease IgG Ab Negative (Negative) Lyme Disease IgM Ab Negative (Negative) 03/14/19 03/14/19 03/14/19 Range/Units 05:19 05:19 01:46 WBC (4.8-10.8) K/uL RBC (4.2-5.4) M/uL Hgb (12.0-16.0) g/dL Hct (37-47) % MCV (80-100) fL MCH (25-34) pg MCHC (32-36) g/dL RDW Std Deviation (36.4-46.3) fL RDW Coeff of John (11.5-14.5) % Plt Count (130-400) K/uL MPV (7.4-10.4) fL Immature Gran % (Auto) % Neut % (Auto) % Lymph % (Auto) % [place] % (Auto) % Eos % (Auto) % Baso % (Auto) % Immature Gran # (Auto) (0.00-0.02) K/uL Neut # (Auto) (1.4-6.5) K/uL Lymph # (Auto) (1.2-3.4) K/uL [place] # (Auto) (0.11-0.59) K/uL Eos # (Auto) (0-0.5) K/uL Baso # (Auto) (0-0.2) K/uL PT (9.0-12.0) Seconds INR (0.9-1.1) ABG pH (7.35-7.45) ABG pCO2 (35-46) mmHg ABG pO2 (80-95) mm/Hg ABG HCO3 (19-24) mmol/L ABG O2 Saturation (90-95) % ABG Base Excess (-9-1.8) mEq/L Rainer Test (Pos) Barometric Pressure mm/Hg Oxygen Given Sodium 142 (136-145) mmol/L Potassium 3.7 D (3.5-5.1) mmol/L Chloride 111 H (98-107) mmol/L Carbon Dioxide 25 (21-32) mmol/L Anion Gap 6.0 (3-11) BUN 6 L (7-18) mg/dl Creatinine 0.60 D (0.6-1.2) mg/dl Est Cr Clr Drug Dosing 134.5 ml/min Est GFR ( Amer) 127.6 Est GFR (Non-Af Amer) 110.1 BUN/Creatinine Ratio 10.8 (10-20) Glucose 121 H (70-99) mg/dl POC Glucose 137 H (70-99) Estimat Average Glucose 137 mg/dl Hemoglobin A1c 6.4 H (4.5-5.6) % Calcium 7.9 L (8.5-10.1) mg/dl Iron (35-150) mcg/dl TIBC (250-450) mcg/dl Transferrin (200-360) mg/dl Transferrin % Sat (15-50) % Ferritin (8-388) ng/ml Total Bilirubin (0.2-1) mg/dl AST (15-37) U/L ALT (12-78) U/L Alkaline Phosphatase (45-117) U/L Total Protein (6.4-8.2) gm/dl Albumin (3.4-5.0) gm/dl Globulin (2.5-4.0) gm/dl Albumin/Globulin Ratio (0.9-2) Vitamin B12 (211-911) pg/ml Beta-Hydroxybutyric Acd (0.2-2.81) mg/dl TSH (0.300-4.500) uIu/ml Urine Color Urine Appearance (Clear) Urine pH (4.5-7.5) Ur Specific Isabela (1.000-1.030) Urine Protein (Negative) Urine Glucose (UA) (Negative) Urine Ketones (Negative) Urine Blood (Negative) Urine Nitrite (Negative) Urine Bilirubin (Negative) Urine Urobilinogen (Negative) Ur Leukocyte Esterase (Negative) Salicylates (2.8-20) mg/dl Urine Opiates Screen (Neg) Ur Methadone, Qual (Neg) Acetaminophen (10-30) ug/ml Urine Barbiturates (Neg) Ur Phencyclidine (PCP) (Neg) U Amphetamin/Meth Scrn (Neg) MDMA (Ecstasy) Screen (Neg) U Benzodiazepines Scrn (Neg) Ur Cocaine Metabolite (Neg) U Marijuana (THC) Screen (Neg) Ethyl Alcohol mg/dL (0-3) mg/dl RPR Lyme Disease IgG Ab (Negative) Lyme Disease IgM Ab (Negative) 03/13/19 03/13/19 03/13/19 Range/Units 23:15 23:15 22:02 WBC (4.8-10.8) K/uL RBC (4.2-5.4) M/uL Hgb (12.0-16.0) g/dL Hct (37-47) % MCV (80-100) fL MCH (25-34) pg MCHC (32-36) g/dL RDW Std Deviation (36.4-46.3) fL RDW Coeff of John (11.5-14.5) % Plt Count (130-400) K/uL MPV (7.4-10.4) fL Immature Gran % (Auto) % Neut % (Auto) % Lymph % (Auto) % [place] % (Auto) % Eos % (Auto) % Baso % (Auto) % Immature Gran # (Auto) (0.00-0.02) K/uL Neut # (Auto) (1.4-6.5) K/uL Lymph # (Auto) (1.2-3.4) K/uL [place] # (Auto) (0.11-0.59) K/uL Eos # (Auto) (0-0.5) K/uL Baso # (Auto) (0-0.2) K/uL PT (9.0-12.0) Seconds INR (0.9-1.1) ABG pH 7.46 H (7.35-7.45) ABG pCO2 31 L (35-46) mmHg ABG pO2 96 H (80-95) mm/Hg ABG HCO3 22 (19-24) mmol/L ABG O2 Saturation 97.8 H (90-95) % ABG Base Excess -1.6 (-9-1.8) mEq/L Rainer Test POS (Pos) Barometric Pressure 730.9 mm/Hg Oxygen Given ROOM AIR Sodium (136-145) mmol/L Potassium (3.5-5.1) mmol/L Chloride (98-107) mmol/L Carbon Dioxide (21-32) mmol/L Anion Gap (3-11) BUN (7-18) mg/dl Creatinine (0.6-1.2) mg/dl Est Cr Clr Drug Dosing ml/min Est GFR ( Amer) Est GFR (Non-Af Amer) BUN/Creatinine Ratio (10-20) Glucose (70-99) mg/dl POC Glucose (70-99) Estimat Average Glucose mg/dl Hemoglobin A1c (4.5-5.6) % Calcium (8.5-10.1) mg/dl Iron (35-150) mcg/dl TIBC (250-450) mcg/dl Transferrin (200-360) mg/dl Transferrin % Sat (15-50) % Ferritin (8-388) ng/ml Total Bilirubin (0.2-1) mg/dl AST (15-37) U/L ALT (12-78) U/L Alkaline Phosphatase (45-117) U/L Total Protein (6.4-8.2) gm/dl Albumin (3.4-5.0) gm/dl Globulin (2.5-4.0) gm/dl Albumin/Globulin Ratio (0.9-2) Vitamin B12 (211-911) pg/ml Beta-Hydroxybutyric Acd Cancelled (0.2-2.81) mg/dl TSH (0.300-4.500) uIu/ml Urine Color Urine Appearance (Clear) Urine pH (4.5-7.5) Ur Specific Isabela (1.000-1.030) Urine Protein (Negative) Urine Glucose (UA) (Negative) Urine Ketones (Negative) Urine Blood (Negative) Urine Nitrite (Negative) Urine Bilirubin (Negative) Urine Urobilinogen (Negative) Ur Leukocyte Esterase (Negative) Salicylates (2.8-20) mg/dl Urine Opiates Screen (Neg) Ur Methadone, Qual (Neg) Acetaminophen (10-30) ug/ml Urine Barbiturates (Neg) Ur Phencyclidine (PCP) (Neg) U Amphetamin/Meth Scrn (Neg) MDMA (Ecstasy) Screen (Neg) U Benzodiazepines Scrn (Neg) Ur Cocaine Metabolite (Neg) U Marijuana (THC) Screen (Neg) Ethyl Alcohol mg/dL < 3.0 (0-3) mg/dl RPR Lyme Disease IgG Ab (Negative) Lyme Disease IgM Ab (Negative) 03/13/19 03/13/19 03/13/19 Range/Units 22:02 22:02 22:02 WBC 9.77 (4.8-10.8) K/uL RBC 4.45 (4.2-5.4) M/uL Hgb 10.7 L (12.0-16.0) g/dL Hct 34.1 L (37-47) % MCV 76.6 L (80-100) fL MCH 24.0 L (25-34) pg MCHC 31.4 L (32-36) g/dL RDW Std Deviation 47.7 H (36.4-46.3) fL RDW Coeff of John 16.8 H (11.5-14.5) % Plt Count 277 (130-400) K/uL MPV 11.1 H (7.4-10.4) fL Immature Gran % (Auto) 0.2 % Neut % (Auto) 86.8 % Lymph % (Auto) 8.6 % [place] % (Auto) 4.1 % Eos % (Auto) 0.1 % Baso % (Auto) 0.2 % Immature Gran # (Auto) 0.02 (0.00-0.02) K/uL Neut # (Auto) 8.48 H (1.4-6.5) K/uL Lymph # (Auto) 0.84 L (1.2-3.4) K/uL [place] # (Auto) 0.40 (0.11-0.59) K/uL Eos # (Auto) 0.01 (0-0.5) K/uL Baso # (Auto) 0.02 (0-0.2) K/uL PT (9.0-12.0) Seconds INR (0.9-1.1) ABG pH (7.35-7.45) ABG pCO2 (35-46) mmHg ABG pO2 (80-95) mm/Hg ABG HCO3 (19-24) mmol/L ABG O2 Saturation (90-95) % ABG Base Excess (-9-1.8) mEq/L Rainer Test (Pos) Barometric Pressure mm/Hg Oxygen Given Sodium 136 (136-145) mmol/L Potassium 3.1 L (3.5-5.1) mmol/L Chloride 102 (98-107) mmol/L Carbon Dioxide 16 L (21-32) mmol/L Anion Gap 18.0 H (3-11) BUN 9 (7-18) mg/dl Creatinine 1.19 (0.6-1.2) mg/dl Est Cr Clr Drug Dosing 69.1 ml/min Est GFR ( Amer) 63.8 Est GFR (Non-Af Amer) 55.1 BUN/Creatinine Ratio 7.8 L (10-20) Glucose 299 H (70-99) mg/dl POC Glucose (70-99) Estimat Average Glucose mg/dl Hemoglobin A1c (4.5-5.6) % Calcium 8.3 L (8.5-10.1) mg/dl Iron (35-150) mcg/dl TIBC (250-450) mcg/dl Transferrin (200-360) mg/dl Transferrin % Sat (15-50) % Ferritin (8-388) ng/ml Total Bilirubin 0.4 (0.2-1) mg/dl AST 18 (15-37) U/L ALT 31 (12-78) U/L Alkaline Phosphatase 103 (45-117) U/L Total Protein 7.9 (6.4-8.2) gm/dl Albumin 3.8 (3.4-5.0) gm/dl Globulin 4.1 H (2.5-4.0) gm/dl Albumin/Globulin Ratio 0.9 (0.9-2) Vitamin B12 (211-911) pg/ml Beta-Hydroxybutyric Acd 1.47 (0.2-2.81) mg/dl TSH 1.970 (0.300-4.500) uIu/ml Urine Color Urine Appearance (Clear) Urine pH (4.5-7.5) Ur Specific Isabela (1.000-1.030) Urine Protein (Negative) Urine Glucose (UA) (Negative) Urine Ketones (Negative) Urine Blood (Negative) Urine Nitrite (Negative) Urine Bilirubin (Negative) Urine Urobilinogen (Negative) Ur Leukocyte Esterase (Negative) Salicylates < 1.7 L (2.8-20) mg/dl Urine Opiates Screen (Neg) Ur Methadone, Qual (Neg) Acetaminophen < 2 L (10-30) ug/ml Urine Barbiturates (Neg) Ur Phencyclidine (PCP) (Neg) U Amphetamin/Meth Scrn (Neg) MDMA (Ecstasy) Screen (Neg) U Benzodiazepines Scrn (Neg) Ur Cocaine Metabolite (Neg) U Marijuana (THC) Screen (Neg) Ethyl Alcohol mg/dL (0-3) mg/dl RPR Lyme Disease IgG Ab (Negative) Lyme Disease IgM Ab (Negative) 03/13/19 03/13/19 Range/Units 20:30 20:30 WBC (4.8-10.8) K/uL RBC (4.2-5.4) M/uL Hgb (12.0-16.0) g/dL Hct (37-47) % MCV (80-100) fL MCH (25-34) pg MCHC (32-36) g/dL RDW Std Deviation (36.4-46.3) fL RDW Coeff of John (11.5-14.5) % Plt Count (130-400) K/uL MPV (7.4-10.4) fL Immature Gran % (Auto) % Neut % (Auto) % Lymph % (Auto) % [place] % (Auto) % Eos % (Auto) % Baso % (Auto) % Immature Gran # (Auto) (0.00-0.02) K/uL Neut # (Auto) (1.4-6.5) K/uL Lymph # (Auto) (1.2-3.4) K/uL Surry # (Auto) (0.11-0.59) K/uL Eos # (Auto) (0-0.5) K/uL Baso # (Auto) (0-0.2) K/uL PT (9.0-12.0) Seconds INR (0.9-1.1) ABG pH (7.35-7.45) ABG pCO2 (35-46) mmHg ABG pO2 (80-95) mm/Hg ABG HCO3 (19-24) mmol/L ABG O2 Saturation (90-95) % ABG Base Excess (-9-1.8) mEq/L Rainer Test (Pos) Barometric Pressure mm/Hg Oxygen Given Sodium (136-145) mmol/L Potassium (3.5-5.1) mmol/L Chloride (98-107) mmol/L Carbon Dioxide (21-32) mmol/L Anion Gap (3-11) BUN (7-18) mg/dl Creatinine (0.6-1.2) mg/dl Est Cr Clr Drug Dosing ml/min Est GFR ( Amer) Est GFR (Non-Af Amer) BUN/Creatinine Ratio (10-20) Glucose (70-99) mg/dl POC Glucose (70-99) Estimat Average Glucose mg/dl Hemoglobin A1c (4.5-5.6) % Calcium (8.5-10.1) mg/dl Iron (35-150) mcg/dl TIBC (250-450) mcg/dl Transferrin (200-360) mg/dl Transferrin % Sat (15-50) % Ferritin (8-388) ng/ml Total Bilirubin (0.2-1) mg/dl AST (15-37) U/L ALT (12-78) U/L Alkaline Phosphatase (45-117) U/L Total Protein (6.4-8.2) gm/dl Albumin (3.4-5.0) gm/dl Globulin (2.5-4.0) gm/dl Albumin/Globulin Ratio (0.9-2) Vitamin B12 (211-911) pg/ml Beta-Hydroxybutyric Acd (0.2-2.81) mg/dl TSH (0.300-4.500) uIu/ml Urine Color Yellow Urine Appearance Clear (Clear) Urine pH 6.0 (4.5-7.5) Ur Specific Isabela 1.012 (1.000-1.030) Urine Protein Negative (Negative) Urine Glucose (UA) 1+ H (Negative) Urine Ketones Negative (Negative) Urine Blood Negative (Negative) Urine Nitrite Negative (Negative) Urine Bilirubin Negative (Negative) Urine Urobilinogen Negative (Negative) Ur Leukocyte Esterase Negative (Negative) Salicylates (2.8-20) mg/dl Urine Opiates Screen Neg (Neg) Ur Methadone, Qual Neg (Neg) Acetaminophen (10-30) ug/ml Urine Barbiturates Neg (Neg) Ur Phencyclidine (PCP) Neg (Neg) U Amphetamin/Meth Scrn Neg (Neg) MDMA (Ecstasy) Screen Neg (Neg) U Benzodiazepines Scrn Neg (Neg) Ur Cocaine Metabolite Neg (Neg) U Marijuana (THC) Screen Neg (Neg) Ethyl Alcohol mg/dL (0-3) mg/dl RPR Lyme Disease IgG Ab (Negative) Lyme Disease IgM Ab (Negative) PG Care Time/CCT Total # of Minutes Spent Total Time Spent with Patient: Total time spent is greater than 50% in coordination of care (as documented) at patient's floor/unit and/or counseling patient:
== END 2019-03-14 23:20 ==
LOC: 3N 20:11 → ED 20:11 → SUATTDRO 03-14 02:16 → 3N 03-14 03:32

== ENCOUNTER 2021-06-24 21:59 | Inpatient (IN) ==
[2021-06-24] MEDS ORDERED: LORazepam 1 MG TAB SL STA (22:57)
--- NOTE | 2021-06-24 23:01 | Emergency Department Note ---
Impression & Plan Acute psychosis, Anxiety, Jose Ramon ED Provider Note NAME: CARISSA PINEDA AGE: 46 SEX: F : 1975 ARRIVES VIA: Walk-In INFORMANT: [Patient] ED PROVIDER(S): [Alex Hart MD] CHIEF COMPLAINT: Anxiety HISTORY OF PRESENT ILLNESS: The patient is a 46-year-old female who presents to the ER with what she says is anxiety. She is here with her brother. Work has been stressful, she and her are having a lot of verbal arguments and she feels very stressed. She has a history of anxiety and she is here to hopefully get some medication that can improve her symptoms. She does not really want to stay in the hospital. The patient denies any suicidal ideation. She has been hospitalized for anxiety before. She is taking her anxiety medications as prescribed. She says in the past, Ativan has helped extreme anxiety situations. She is vaccinated against COVID-19. REVIEW OF SYSTEMS: See HPI for pertinent positives and negatives. A total of ten systems were reviewed and were otherwise negative. PMHx/PSHx: See Below SOCIAL HISTORY: See Below. PHYSICAL EXAM: GENERAL: Patient is in mild distress, very anxious. Almost manic. HEENT: No acute trauma, normocephalic atraumatic, mucous membranes moist, no nasal congestion, no scleral icterus. NECK: No stridor, no adenopathy, no meningismus, trachea is midline. LUNGS: Clear to auscultation bilaterally, no wheeze, no rhonchi, breath sounds equal. HEART: Without murmurs gallops or rubs, regular rate and rhythm. ABDOMEN: Soft, nontender, bowel sounds positive, no hernias, no peritonitis. EXTREMITIES: No cyanosis or edema, full range of motion of all the joints without pain or difficulty, no signs for acute trauma. NEUROLOGIC: Oriented x 3, no acute motor or sensory deficits, no focal weakness. SKIN: No rash, no jaundice, no diaphoresis. Psychiatric: Anxious, speaking rapidly, seems manic. Denies being suicidal. Voluntary. DIFFERENTIAL DIAGNOSIS: Mood disorder, infection, hypoglycemia, electrolyte abnormalities, anxiety, suicidality, depression, psychosis, jose ramon, cardiac sources, intracerebral event, toxicologic etiology, trauma, neurologic event, as well as other pathologies. EMERGENCY DEPARTMENT COURSE/PROCEDURES: MEDICAL DECISION MAKING: There is no leukocytosis or concerning anemia. There is a normal platelet count. Potassium mildly low but not in need of emergent correction. No renal failure. No worrisome liver enzyme elevation. The patient appeared to be in a euthyroid state. testing was negative. Urinalysis did not show infection. Aspirin, Tylenol and alcohol levels were undetectable. Urine tox was negative. Covid test is pending. The patient presents with anxiety. She seemed manic. The psychiatry supervisor case loading was able to talk with the brother separately. The patient has been acting quite bizarre and he is quite concerned about her behavior. He felt his sister required psychiatric hospitalization. He did fill out a 302 petition. Patient finally did consent to a dose of oral Ativan. The patient was informed that she would be best served with a hospital stay. Her issues were not amenable to a simple medication change. She did consent and has agreed to sign into the psychiatric hospital voluntarily. Apparently, there was concern that the patient may not have been taking her prescribed medications. She apparently has been quite paranoid at times. She feels her may be trying to give her the wrong medication so, there is concern that she has not been taking her meds at all. The patient has been cooperative. She remains somewhat manic but seems a bit better after the Ativan. She was felt medically clear for a psychiatric h ospital stay. The patient will be seen by our psychiatry services, 3 S. At this point, the case is being assumed by Dr. Nolen at the change of shift. Please see her notes for the final disposition. 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 Surgical History History of cholecystectomy History of dilatation and curettage History of tonsillectomy and adenoidectomy Family History Mother Family history of diabetes mellitus Family hx colonic polyps Heart disease Hypertension Cerebral aneurysm Stroke Other No family history of adverse response to anesthesia Denies family history of Ovarian cancer Prostate cancer Breast cancer Colorectal cancer Social History Smoking Status: Former smoker Second Hand Exposure: No; Hx Alcohol Use: No Hx Substance Use: No Preferred Language: Polish Communication Ability: Effective Visual Impairment: No Limitations Hearing Ability: Normal Art Manager Required: No Beliefs That Will Affect Care: None marital status: Current Living Situation: Significant Other Current Living Situation Comment: Lives with daughter and significant other current occupational status: employed Feels Safe at Home: Yes Dental Care, Regularly: Yes Physical Activity Frequency: Does not Exercise Assistive Devices: Glasses Allergies Allergies Allergy/AdvReac Type Severity Reaction Status Date / Time No Known Drug Allergies Allergy Verified 03/31/21 10:24 Cephalosporins AdvReac Mild Hives Verified 09/29/20 09:37 Home Meds Home Medications Medication Instructions Recorded Confirmed levonorgestrel 20 mcg/24 hours (7 20 mcg IU DIRECTED 06/20/19 06/24/21 yrs) 52 mg intrauterine device (Mirena) Previous Rx's Medication Instructions Recorded benztropine 1 mg tablet 1 mg PO DAILY #30 tab 08/26/19 chlorpromazine 25 mg tablet 25 mg PO BID #30 tab 10/04/19 chlorpromazine 50 mg tablet 50 mg PO HS #30 tab 10/04/19 levothyroxine 125 mcg tablet 125 mcg PO QAM #90 tab 08/21/20 atorvastatin 10 mg tablet 10 mg PO DAILY #90 tab 09/29/20 metformin 500 mg tablet 500 mg PO BID #60 tab 02/17/21 blood sugar diagnostic (OneTouch #50 ea 03/31/21 Verio test strips) blood-glucose meter (OneTouch #1 ea 03/31/21 Verio Flex meter) lancets 30 gauge (OneTouch Delica #100 ea 03/31/21 Lancets) Results & Data (ED) Vital Signs Vital Signs - 24 hr 06/24/21 22:02 Temperature 36.6 C Temperature Source Temporal Artery Scan Pulse Rate 113 H Pulse Rhythm Regular Pulse Strength Normal Respiratory Rate 20 Respiratory Effort / Characteristics Non-Labored Spontaneous Respiratory Depth Normal Respiratory Pattern Regular Blood Pressure 170/09 H Blood Pressure Mean 62 Blood Pressure Position Sitting Pulse Oximetry 99 Oxygen Delivery Method Room Air Sepsis Recent Fever Within 48 Hours No Sepsis New/Unexplained Change in Mental Status N/A Sepsis Action Taken by Nursing No Action Required Home Medications Current Medication List: was personally reviewed by me Laboratory Data Attestation: I reviewed the patient's lab results. Result diagrams: 06/24/21 23:53 06/24/21 23:53 Lab Results 06/24/21 06/24/21 06/24/21 Range/Units 23:03 23:19 23:19 WBC (4.8-10.8) K/uL RBC (4.2-5.4) M/uL Hgb (12.0-16.0) g/dL Hct (37-47) % MCV (80-100) fL MCH (25-34) pg MCHC (32-36) g/dL RDW Std Deviation (36.4-46.3) fL RDW Coeff of John (11.5-14.5) % Plt Count (130-400) K/uL MPV (7.4-10.4) fL Immature Gran % (Auto) % Neut % (Auto) % Lymph % (Auto) % [place] % (Auto) % Eos % (Auto) % Baso % (Auto) % Neut # (Auto) (1.4-6.5) K/uL Lymph # (Auto) (1.2-3.4) K/uL [place]ole # (Auto) (0.11-0.59) K/uL Eos # (Auto) (0-0.5) K/uL Baso # (Auto) (0-0.2) K/uL Immature Gran # (Auto) (0.00-0.02) K/uL Sodium (136-145) mmol/L Potassium (3.5-5.1) mmol/L Chloride (98-107) mmol/L Carbon Dioxide (21-32) mmol/L Anion Gap (3-11) BUN (7-18) mg/dl Creatinine (0.6-1.2) mg/dl Est Cr Clr Drug Dosing ml/min Est GFR ( Amer) ml/min Est GFR (Non-Af Amer) ml/min BUN/Creatinine Ratio (10-20) Glucose (70-99) mg/dl POC Glucose 146 H (70-99) mg/dl Calcium (8.5-10.1) mg/dl Total Bilirubin (0.2-1) mg/dl AST (15-37) U/L ALT (12-78) U/L Alkaline Phosphatase (45-117) U/L Total Protein (6.4-8.2) gm/dl Albumin (3.4-5.0) gm/dl Globulin (2.5-4.0) gm/dl Albumin/Globulin Ratio (0.9-2) TSH (0.300-4.500) uIu/ml HCG, Qual (Negative) Urine Color Yellow Urine Appearance Clear (Clear) Urine pH 7.0 (4.5-7.5) Ur Specific [place] 1.002 (1.000-1.030) Urine Protein Negative (Negative) Urine Glucose (UA) Negative (Negative) Urine Ketones Negative (Negative) Urine Blood Negative (Negative) Urine Nitrite Negative (Negative) Urine Bilirubin Negative (Negative) Urine Urobilinogen Negative (Negative) Ur Leukocyte Esterase Negative (Negative) Salicylates (2.8-20) mg/dl Urine Opiates Screen Neg (Neg) Ur Methadone, Qual Neg (Neg) Acetaminophen (10-30) ug/ml Urine Barbiturates Neg (Neg) Ur Phencyclidine (PCP) Neg (Neg) U Amphetamin/Meth Scrn Neg (Neg) MDMA (Ecstasy) Screen Neg (Neg) U Benzodiazepines Scrn Neg (Neg) Ur Cocaine Metabolite Neg (Neg) U Marijuana (THC) Screen Neg (Neg) Ethyl Alcohol mg/dL (0-3) mg/dl 06/24/21 06/24/21 06/24/21 Range/Units 23:53 23:53 23:53 WBC 10.49 (4.8-10.8) K/uL RBC 4.47 (4.2-5.4) M/uL Hgb 14.2 (12.0-16.0) g/dL Hct 40.5 (37-47) % MCV 90.6 (80-100) fL MCH 31.8 (25-34) pg MCHC 35.1 (32-36) g/dL RDW Std Deviation 40.8 (36.4-46.3) fL RDW Coeff of John 12.3 (11.5-14.5) % Plt Count 268 (130-400) K/uL MPV 10.6 H (7.4-10.4) fL Immature Gran % (Auto) 0.2 % Neut % (Auto) 73.4 % Lymph % (Auto) 20.5 % Toole % (Auto) 5.1 % Eos % (Auto) 0.6 % Baso % (Auto) 0.2 % Neut # (Auto) 7.70 H (1.4-6.5) K/uL Lymph # (Auto) 2.15 (1.2-3.4) K/uL [place] # (Auto) 0.54 (0.11-0.59) K/uL Eos # (Auto) 0.06 (0-0.5) K/uL Baso # (Auto) 0.02 (0-0.2) K/uL Immature Gran # (Auto) 0.02 (0.00-0.02) K/uL Sodium 137 (136-145) mmol/L Potassium 3.2 L (3.5-5.1) mmol/L Chloride 104 (98-107) mmol/L Carbon Dioxide 25 (21-32) mmol/L Anion Gap 8.0 (3-11) BUN 9 (7-18) mg/dl Creatinine 0.65 (0.6-1.2) mg/dl Est Cr Clr Drug Dosing 118.8 ml/min Est GFR ( Amer) 121.7 ml/min Est GFR (Non-Af Amer) 105.0 ml/min BUN/Creatinine Ratio 14.2 (10-20) Glucose 189 H (70-99) mg/dl POC Glucose (70-99) mg/dl Calcium 8.7 (8.5-10.1) mg/dl Total Bilirubin 0.6 (0.2-1) mg/dl AST 15 (15-37) U/L ALT 35 (12-78) U/L Alkaline Phosphatase 96 (45-117) U/L Total Protein 7.9 (6.4-8.2) gm/dl Albumin 3.9 (3.4-5.0) gm/dl Globulin 4.0 (2.5-4.0) gm/dl Albumin/Globulin Ratio 1.0 (0.9-2) TSH 1.660 (0.300-4.500) uIu/ml HCG, Qual (Negative) Urine Color Urine Appearance (Clear) Urine pH (4.5-7.5) Ur Specific [place] (1.000-1.030) Urine Protein (Negative) Urine Glucose (UA) (Negative) Urine Ketones (Negative) Urine Blood (Negative) Urine Nitrite (Negative) Urine Bilirubin (Negative) Urine Urobilinogen (Negative) Ur Leukocyte Esterase (Negative) Salicylates < 1.7 L (2.8-20) mg/dl Urine Opiates Screen (Neg) Ur Methadone, Qual (Neg) Acetaminophen < 2 L (10-30) ug/ml Urine Barbiturates (Neg) Ur Phencyclidine (PCP) (Neg) U Amphetamin/Meth Scrn (Neg) MDMA (Ecstasy) Screen (Neg) U Benzodiazepines Scrn (Neg) Ur Cocaine Metabolite (Neg) U Marijuana (THC) Screen (Neg) Ethyl Alcohol mg/dL (0-3) mg/dl 06/24/21 06/24/21 Range/Units 23:53 23:53 WBC (4.8-10.8) K/uL RBC (4.2-5.4) M/uL Hgb (12.0-16.0) g/dL Hct (37-47) % MCV (80-100) fL MCH (25-34) pg MCHC (32-36) g/dL RDW Std Deviation (36.4-46.3) fL RDW Coeff of John (11.5-14.5) % Plt Count (130-400) K/uL MPV (7.4-10.4) fL Immature Gran % (Auto) % Neut % (Auto) % Lymph % (Auto) % [place] % (Auto) % Eos % (Auto) % Baso % (Auto) % Neut # (Auto) (1.4-6.5) K/uL Lymph # (Auto) (1.2-3.4) K/uL [place]ole # (Auto) (0.11-0.59) K/uL Eos # (Auto) (0-0.5) K/uL Baso # (Auto) (0-0.2) K/uL Immature Gran # (Auto) (0.00-0.02) K/uL Sodium (136-145) mmol/L Potassium (3.5-5.1) mmol/L Chloride (98-107) mmol/L Carbon Dioxide (21-32) mmol/L Anion Gap (3-11) BUN (7-18) mg/dl Creatinine (0.6-1.2) mg/dl Est Cr Clr Drug Dosing ml/min Est GFR ( Amer) ml/min Est GFR (Non-Af Amer) ml/min BUN/Creatinine Ratio (10-20) Glucose (70-99) mg/dl POC Glucose (70-99) mg/dl Calcium (8.5-10.1) mg/dl Total Bilirubin (0.2-1) mg/dl AST (15-37) U/L ALT (12-78) U/L Alkaline Phosphatase (45-117) U/L Total Protein (6.4-8.2) gm/dl Albumin (3.4-5.0) gm/dl Globulin (2.5-4.0) gm/dl Albumin/Globulin Ratio (0.9-2) TSH (0.300-4.500) uIu/ml HCG, Qual Negative (Negative) Urine Color Urine Appearance (Clear) Urine pH (4.5-7.5) Ur Specific [place] (1.000-1.030) Urine Protein (Negative) Urine Glucose (UA) (Negative) Urine Ketones (Negative) Urine Blood (Negative) Urine Nitrite (Negative) Urine Bilirubin (Negative) Urine Urobilinogen (Negative) Ur Leukocyte Esterase (Negative) Salicylates (2.8-20) mg/dl Urine Opiates Screen (Neg) Ur Methadone, Qual (Neg) Acetaminophen (10-30) ug/ml Urine Barbiturates (Neg) Ur Phencyclidine (PCP) (Neg) U Amphetamin/Meth Scrn (Neg) MDMA (Ecstasy) Screen (Neg) U Benzodiazepines Scrn (Neg) Ur Cocaine Metabolite (Neg) U Marijuana (THC) Screen (Neg) Ethyl Alcohol mg/dL < 3.0 (0-3) mg/dl Administered Medications Discontinued Medications Lorazepam (Lorazepam 1 Mg Tab) 1 mg SL NOW STA Stop: 06/24/21 22:58 Last Admin: 06/24/21 23:11 Dose: 1 mg Documented by: [id number] Discharge Plan Visit Data Chief Complaint: Anxiety Stated Complaint: ANXIETY - MED CHANGE REQUEST ED Provider: Alex Hart Discharge Problem: Acute psychosis, Anxiety, Jose Ramon Patient Disposition: Still a Patient Condition: Good Forms Stand Alone Forms: My [facility] [employer], Suicide Prevention Resources Prescriptions Prescriptions: No Action benztropine 1 mg tablet 1 mg PO DAILY Qty: 30 RF: 2 chlorpromazine 25 mg tablet 25 mg PO BID Qty: 30 RF: 2 chlorpromazine 50 mg tablet 50 mg PO HS Qty: 30 RF: 2 levothyroxine 125 mcg tablet 125 mcg PO QAM Qty: 90 RF: 3 metformin 500 mg tablet 500 mg PO BID Qty: 60 RF: 5 atorvastatin 10 mg tablet 10 mg PO DAILY Qty: 90 RF: 3 Mirena 20 mcg/24 hours (5 yrs) 52 mg intrauterine device 20 mcg IU DIRECTED RF: 0 (DME) blood-glucose meter [OneTouch Verio Flex meter] Misc See Rx Instructions .Route Qty: 1 RF: 0 (DME) lancets [[employer] LLCTouch Delica Lancets] 30 gauge misc See Rx Instructions .Route Qty: 100 RF: 0 (DME) OneTouch Verio test strips Strip See Rx Instructions .Route Qty: 50 RF: 1 Referrals Referrals: Felicitas Aguirre CRNP [Primary Care Provider] -
[2021-06-25 00:04] LABS: Appearance Urine Clear (Clear); Bilirubin Urine Negative (Negative); Blood Urine Negative (Negative); Color Urine Yellow; Glucose Urine UA Negative (Negative); Ketones Urine Negative (Negative); Leukocyte Esterase Urine Negative (Negative); Nitrite Urine Negative (Negative); Protein Urine Negative (Negative); Specific Gravity Urine 1.002 (1.000-1.030); Urobilinogen Urine Negative (Negative)
[2021-06-25 00:21] LABS: Basophils # (auto) 0.02 K/uL (0-0.2); Basophils % (auto) 0.2 %; Eosinophils # (auto) 0.06 K/uL (0-0.5); Eosinophils % (auto) 0.6 %; Hematocrit (blood only) 40.5 % (37-47); Hemoglobin 14.2 g/dL (12.0-16.0); Immature Granulocytes # (auto) 0.02 K/uL (0.00-0.02); Immature Granulocytes % (auto) 0.2 %; Lymphocytes # (auto) 2.15 K/uL (1.2-3.4); Lymphocytes % (auto) 20.5 %; Mean Corpuscular Hemoglobin 31.8 pg (25-34); Mean Corpuscular Hgb Conc 35.1 g/dL (32-36); Mean Corpuscular Volume 90.6 fL (80-100); Mean Platelet Volume 10.6 fL (7.4-10.4); Monocytes # (auto) 0.54 K/uL (0.11-0.59); Monocytes % (auto) 5.1 %; Neutrophils % (auto) 73.4 %; Platelet Count 268 K/uL (130-400); RDW Coefficient of Variation 12.3 % (11.5-14.5); RDW Standard Deviation 40.8 fL (36.4-46.3); Red Blood Count 4.47 M/uL (4.2-5.4); White Blood Count 10.49 K/uL (4.8-10.8)
[2021-06-25 00:30] LABS: Amphetamines+Metham, Urine Neg (Neg); Barbiturates, Urine Neg (Neg); Benzodiazepine, Urine Neg (Neg); Cocaine, Urine Neg (Neg); MDMA (Ecstacy), Urine Neg (Neg); Methadone, Urine Neg (Neg); Opiate, Urine Neg (Neg); Phencyclidine, Urine Neg (Neg)
[2021-06-25 00:41] LABS: Albumin Level 3.9 gm/dl (3.4-5.0); BUN Creatinine Ratio 14.2 (10-20); Calcium 8.7 mg/dl (8.5-10.1); Creatinine Clr Calc Pharmacy 118.8 ml/min; Est GFR (African American) 121.7 ml/min; Potassium 3.2 mmol/L (3.5-5.1)
[2021-06-25 00:44] LABS: Acetaminophen < 2 ug/ml (10-30); Salicylate < 1.7 mg/dl (2.8-20)
[2021-06-25 00:46] LABS: Pregnancy Test, Serum Negative (Negative)
[2021-06-25 00:51] LABS: Bilirubin,Total 0.6 mg/dl (0.2-1); Thyroid Stimulating Hormone 1.66 uIu/ml (0.300-4.500); Total Protein 7.9 gm/dl (6.4-8.2)
[2021-06-25] MEDS ORDERED: hydrOXYzine HCl 25 MG TAB PO PRN (03:27)
[2021-06-25] MEDS ORDERED: ACETAMINOPHEN 325 MG TAB PO PRN (03:27)
[2021-06-25] MEDS ORDERED: MAGNESIUM HYDROXIDE SUSP 30 ML UDC PO PRN (03:27)
[2021-06-25] MEDS ORDERED: BISMUTH SUBSALICYLATE LIQD 236 ML PO PRN (03:27)
[2021-06-25] MEDS ORDERED: ALUMINUM/MAGNESIUM SUSP 30 ML UDC PO PRN (03:27)
[2021-06-25] MEDS ORDERED: SODIUM CHLORIDE 0.65% NA SOLN 45 ML (OCEAN) PRN (03:27)
[2021-06-25] MEDS ORDERED: chlorproMAZINE HCL 25 MG TAB PO ONE (03:29)
--- NOTE | 2021-06-25 07:34 | Emergency Department Note ---
ED Visit Note Patient signed out to me at change of shift by Dr. Hart. Patient medically cleared at time of signout. Please see his note for additional details. Patient with symptoms of jose ramon and paranoia. She was given a dose of Ativan here by Dr. Hart. A 302 petition was written by her brother, however patient is in agreement for voluntary mental health admission. Patient seen and evaluated by staff from [facility]., 201 signed by nv. No other issues reported by nursing staff prior to patient's transfer to [facility]. .
[2021-06-25] MEDS: hydrOXYzine HCl 25 MG TAB PO PRN (10:46)
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
[2021-06-25] MEDS ORDERED: ZOLPIDEM TARTRATE 10 MG TAB PO PRN (11:56)
[2021-06-25] MEDS: LORazepam 1 MG TAB PO PRN (14:03)
[2021-06-25] MEDS: ARIPiprazole 5 MG TAB PO SCH (14:04)
[2021-06-25] MEDS: ATORVASTATIN 10 MG TAB PO SCH (14:04)
[2021-06-25] MEDS: POTASSIUM CHLORIDE CRTAB 20 MEQ TABCR PO SCH (14:05)
[2021-06-25] MEDS: metFORMIN HCL 500 MG TAB PO SCH (17:12)
[2021-06-26 08:12] LABS: Estimated Average Glucose 126 mg/dl
[2021-06-26 08:16] LABS: Potassium 4.1 mmol/L (3.5-5.1)
[2021-06-26] MEDS: ARIPiprazole 5 MG TAB PO SCH (08:44)
[2021-06-26] MEDS: LEVOTHYROXINE SODIUM 125 MCG TABLET PO SCH (08:44)
[2021-06-26] MEDS: metFORMIN HCL 500 MG TAB PO SCH ×2 (08:45→17:23)
[2021-06-26] MEDS: ATORVASTATIN 10 MG TAB PO SCH (08:45)
[2021-06-26] MEDS: POTASSIUM CHLORIDE CRTAB 20 MEQ TABCR PO SCH (08:46)
[2021-06-26] MEDS: LORazepam 1 MG TAB PO PRN ×2 (11:28→20:33)
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
[2021-06-27] MEDS: LEVOTHYROXINE SODIUM 125 MCG TABLET PO SCH (08:06)
[2021-06-27] MEDS: ATORVASTATIN 10 MG TAB PO SCH (08:07)
[2021-06-27] MEDS: metFORMIN HCL 500 MG TAB PO SCH ×2 (08:07→17:32)
[2021-06-27] MEDS: ARIPiprazole 5 MG TAB PO SCH (08:07)
[2021-06-27] MEDS: LORazepam 1 MG TAB PO PRN (09:53)
--- NOTE | 2021-06-27 13:26 | Psychiatric Progress Note ---
Date of Service June 27, 2021 Impression / Recommendations Impression 46 yo female with a history of paranoia requiring inpatient hospitalization in 2019, was stable on thorazine, now presents with anxiety (primarily due to racing thoughts and paranoia), poor sleep, and questionable med compliance. Her paranoia is directed primarily toward her . She requires inpatient hospitalization for stabilization. Given her baseline functioning, age of onset, and interepisode resolution of symtoms of relatively low dose thorazine suspect mood driven--current presentation would be consistent with a mixed episode of bipolar. 06/27/21: ongoing anxiety and paranoia related to (1) Acute psychosis: 06/27/21: continue current meds and treatment plan. 06/26/21: patient agreeable to increase Abilify to 5 mg daily. She is wary of se dation and side effects so will start tomorrow. Fasting labs reviewed. Change diet to carb consistent. 06/25/21: The patient was admitted to the [facility] ([facility] health unit) on q15 min checks (behavioral with suicide precautions) for safety. The patient will participate in group, recreational, and milieu therapies and will be offered additional individual and family sessions as clinically appropriate. Risks/benefits/alternatives were reviewed re: antipsychotics for mood and/or psychosis. Discussion included but was not limited to metabolic side effects, risks of TD and suicidal thoughts. There were no abnormal motor movements at baseline. Fasting glucose and lipid panel ordered for baseline monitoring. She is refusing further doses of thorazine but was agreeable to Abilify 2.5 mg today with titration to 5 mg likely tomorrow. Has prn Ativan, Vistaril, Ambien. Inventory Assets Strengths: intelligent, love for daughter Needs: outpatient therapy, mood stabilizing/antipsychotic medication. Risk Factors Assessment : Yes Substance Use Disorders: No Previous Attempt: No Family History of Suicide: No Protective Factors Assessment Responsible for Young Children: Yes Employed: Yes Supportive Family: Yes Interval History Identifying Information CARISSA PINEDA is a 46-year-old F who currently lives in [place], has a history of 1 prior psychiatric hospitalization for psychosis, and was admitted on 06/25/21 02:30 on a 201 voluntary commitment for paranoid ideation. Chief Complaint "yeah, things have been bad for a while I just didn't have a chance to tell family". Review of Systems Sleep Information Total Hours of Sleep: 6.5 Sleep Comments: pt with late admission. pt on q-15 minute checks Meal Information Percent Meal Consumed - Breakfast: 100 Percent Meal Consumed - Lunch: 100 Percent Meal Consumed - Dinner: 90 Subjective Subjective Patient was seen & assessed and interval progress reviewed with nursing and social work. I also participated in portion of family meeting after meeting with patient individually to discuss diagnostic impressions and medication recommendations. The patient expressed anxiety that daughter is with . She worries because "he's not a good person" and states that daughter requires special care around a brace 17 hrs a day for her congenital scoliosis. Tolerating medication. Took Ativan with benefit last pm. Physical Exam Psychiatric Orientation: alert and oriented x 3 Apperance: appropriately dressed and appropriately groomed Eye Contact: good eye contact Motor Behavior: no abnormal motor movements Speech: normal rate/rhythm/volume of speech Affect: + depressed affect Mood: + anxious mood Thought Process: + circumstantial thought process Thought Content: + paranoid Suicidal Thoughts: denies suicidal thoughts Homicidal Thoughts: denies homicidal thoughts Hallucinations: no auditory hallucinations and no visual hallucinations Cognition: attention grossly intact and language grossly intact Estimated Intelligence: consistent with education level Insight: + limited insight Judgement: + limited judgement Vital Signs (Past 24 Hours) Last Vital Signs Temp 36.9 C 06/27/21 06:00 Pulse 120 H 06/27/21 06:22 Resp 18 06/27/21 06:00 BP 137/90 06/27/21 06:22 Pulse Ox 99 06/25/21 03:41 Results & Data ([facility]) Current Inpatient Medications Current Inpatient Medications: Current Inpatient Medications Acetaminophen (Acetaminophen 325 Mg Tab) 650 mg PO Q4H PRN PRN Reason: Headache or Minor Fever Stop: 07/25/21 03:26 Al Hydrox/Mg Hydrox/Simethicone (Aluminum/Magnesium Susp 30 Ml Udc) 30 ml PO Q4H PRN PRN Reason: GI Upset Stop: 07/25/21 03:26 Aripiprazole (Aripiprazole 5 Mg Tab) 5 mg PO QAM AKANKSHA Stop: 07/27/21 08:59 Last Admin: 06/27/21 08:07 Dose: 5 mg Documented by: Atorvastatin Calcium (Atorvastatin 10 Mg Tab) 10 mg PO DAILY AKANKSHA Stop: 07/25/21 12:29 Last Admin: 06/27/21 08:07 Dose: 10 mg Documented by: Bismuth Subsalicylate (Bismuth Subsalicylate Liqd 236 Ml) 15 ml PO PRN PRN PRN Reason: Loose Stool Stop: 07/25/21 03:26 Hydroxyzine HCl (Hydroxyzine Hcl 25 Mg Tab) 50 mg PO HSZ PRN PRN Reason: Insomnia Stop: 07/25/21 03:26 Hydroxyzine HCl (Hydroxyzine Hcl 25 Mg Tab) 25 mg PO Q4H PRN PRN Reason: Anxiety Stop: 07/25/21 03:26 Last Admin: 06/25/21 10:46 Dose: 25 mg Documented by: Levothyroxine Sodium (Levothyroxine Sodium 125 Mcg Tablet) 125 mcg PO DAILYBB AKANKSHA Stop: 07/26/21 07:59 Last Admin: 06/27/21 08:06 Dose: 125 mcg Documented by: Lorazepam (Lorazepam 1 Mg Tab) 1 mg PO Q6 PRN PRN Reason: Anxiety Stop: 07/25/21 03:27 Last Admin: 06/27/21 09:53 Dose: 1 mg Documented by: Magnesium Hydroxide (Magnesium Hydroxide Susp 30 Ml Udc) 30 ml PO DAILY PRN PRN Reason: Constipation Stop: 07/25/21 03:26 Metformin HCl (Metformin Hcl 500 Mg Tab) 500 mg PO BIDM AKANKSHA Stop: 07/25/21 17:44 Last Admin: 06/27/21 08:07 Dose: 500 mg Documented by: Sodium Chloride (Sodium Chloride 0.65% Na Soln 45 Ml ([place])) 1 - 2 sprays NA PRN PRN PRN Reason: Nasal Dryness/Congestion Stop: 07/25/21 03:26 Zolpidem Tartrate (Zolpidem Tartrate 10 Mg Tab) 10 mg PO HS PRN PRN Reason: Insomnia Stop: 07/25/21 11:55 Mental Health & Subst Abuse Tx Psychiatrist Name of Psychiatrist: [facility] - Dr Leon Psychiatrist's Psychiatric Appointment Comment: [id number], [place] [address] Therapist Name of Therapist: . Tin Can Feeder Name of Tin Can Feeder: . Post Discharge Appointments Primary Care Physician Name Of Family Doctor: MAGDY DORANTES Primary Care Provider Appointment Comment: [address] [facility] [place], [place] [address] Contact Information Discharge Discharge Address: [address] [place] [address], [place] [address]
[2021-06-28] MEDS: hydrOXYzine HCl 25 MG TAB PO PRN (02:46)
[2021-06-28] MEDS: metFORMIN HCL 500 MG TAB PO SCH ×2 (08:39→18:26)
[2021-06-28] MEDS: LEVOTHYROXINE SODIUM 125 MCG TABLET PO SCH (08:39)
[2021-06-28] MEDS: ATORVASTATIN 10 MG TAB PO SCH (08:39)
[2021-06-28] MEDS: ARIPiprazole 5 MG TAB PO SCH (08:39)
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
[2021-06-29] MEDS: hydrOXYzine HCl 25 MG TAB PO PRN ×2 (00:25→23:37)
[2021-06-29] MEDS: LEVOTHYROXINE SODIUM 125 MCG TABLET PO SCH (08:47)
[2021-06-29] MEDS: ATORVASTATIN 10 MG TAB PO SCH (08:48)
[2021-06-29] MEDS: metFORMIN HCL 500 MG TAB PO SCH ×2 (08:48→17:19)
[2021-06-29] MEDS ORDERED: ARIPiprazole 5 MG TAB PO SCH (09:00)
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
[2021-06-30] MEDS: ATORVASTATIN 10 MG TAB PO SCH (09:25)
[2021-06-30] MEDS: ARIPiprazole 10 MG TAB PO SCH (09:25)
[2021-06-30] MEDS: LEVOTHYROXINE SODIUM 125 MCG TABLET PO SCH (09:25)
[2021-06-30] MEDS: metFORMIN HCL 500 MG TAB PO SCH ×2 (09:25→17:23)
[2021-06-30] MEDS ORDERED: ARIPiprazole 5 MG TAB PO PRN (17:07)
--- NOTE | 2021-06-30 17:07 | Psychiatric Progress Note ---
Date of Service June 30, 2021 Impression / Recommendations Impression 46 yo female with a history of paranoia requiring inpatient hospitalization in 2019, was stable on thorazine, now presents with anxiety (primarily due to racing thoughts and paranoia), poor sleep, and questionable med compliance. Her paranoia is directed primarily toward her . She requires inpatient hospitalization for stabilization. Given her baseline functioning, age of onset, and interepisode resolution of symtoms of relatively low dose thorazine suspect mood driven--current presentation would be consistent with a mixed episode of bipolar versus MDD with psychotic features and anxious distress. 06/30/21: slight lessening of paranoia about , she denies any classical/typical signs of trauma nor abuse prior to admission rather describes challenge of parenting without feeling supported and feeling isolated in coping with her anxiety as she feels her has not been supportive. Plan: she consents to abilify dose prn if needed for evening anxiety, tolerating abilify titration well. Agrees to allow social work to set up family meeting with her . (1) Acute psychosis: 06/30/21: add abilify 2.5 mg hs prn for evening rumination and anxiety. 06/29/21: given her goal of making hospitalization as brief as possible will go ahead with further abilify titration to 10mg qd starting tomorrow. Reduced atarax to 12.5 mg qhs prn given her sensitivity to sedating effects and her preference to avoid any other sedating medication options for help with anxiety/insomnia. 06/28/21: increase abilify to 7.5mg qd starting tomorrow. 06/27/21: continue current meds and treatment plan. 06/26/21: patient agreeable to increase Abilify to 5 mg daily. She is wary of sedation and side effects so will start tomorrow. Fasting labs reviewed. Change diet to carb consistent. 06/25/21: The patient was admitted to the [facility] ([facility] mental health unit) on q15 min checks (behavioral with suicide precautions) for safety. The patient will participate in group, recreational, and milieu therapies and will be offered additional individual and family sessions as clinically appropriate. Risks/benefits/alternatives were reviewed re: antipsychotics for mood and/or psychosis. Discussion included but was not limited to metabolic side effects, risks of TD and suicidal thoughts. There were no abnormal motor movements at baseline. Fasting glucose and lipid panel ordered for baseline monitoring. She is refusing further doses of thorazine but was agreeable to Abilify 2.5 mg today with titration to 5 mg likely tomorrow. Has prn Ativan, Vistaril, Ambien. Inventory Assets Strengths: intelligent, love for daughter Needs: outpatient therapy, mood stabilizing/antipsychotic medication. Risk Factors Assessment : Yes Substance Use Disorders: No Previous Attempt: No Family History of Suicide: No Protective Factors Assessment Responsible for Young Children: Yes Employed: Yes Supportive Family: Yes Interval History Identifying Information CARISSA PINEDA is a 46-year-old F who currently lives in [place], has a history of 1 prior psychiatric hospitalization for psychosis, and was admitted on 06/25/21 02:30 on a 201 voluntary commitment for paranoid ideation. Chief Complaint "It might be worth trying to have a call with him". Review of Systems Sleep Information Total Hours of Sleep: 7.25 Sleep Comments: pt with late admission. pt on q-15 minute checks Meal Information Percent Meal Consumed - Breakfast: 100 Percent Meal Consumed - Lunch: 100 Percent Meal Consumed - Dinner: 75 Nutrition Comment: pt. had cereal instead of dinner entree, which she plans to eat later. Pt. had a large lunch Subjective Subjective Patient was seen & assessed and interval progress reviewed with treatment team nursing and social work. Remains very anxious about idea of returning home and being around her . Wonders if there would a legal action she could take to have him leave the house. Discussed her concerns and reviewed risk factors for abuse and safety. She denies any history of her limiting her access to transportation, financial funds, phone, medications, medical appointments, visits with family, nor questioning her location or what she does during the day. She does feel that he can be controlling in that "I'll ask him to watch my daughter for 5 minutes so I can call my friend and he'll refuse so he does limit from doing that". She denies any history of any physical abuse and no history of him making any threats to be violent, hitting lemons or surfaces near her, choking/pushing/throwing/grabbing nor any other physical actions or emotional actions of intimidation. 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 She is now willing to do a family phone call as he seems to be recognizing the challenge that parenting a 3 yo brings. Continues to have anxiety and worries before bed regarding housing options and how her will act once she's home. Took low dose vistaril last night and it helped somewhat with anxiety and she had improved sleep with no morning sedation. Physical Exam Psychiatric Orientation: alert and oriented x 3 Apperance: appropriately dressed and appropriately groomed Eye Contact: good eye contact Motor Behavior: no abnormal motor movements Speech: normal rate/rhythm/volume of speech Mood: + anxious mood Thought Process: + perseveration Thought Content: + paranoid Suicidal Thoughts: denies suicidal thoughts Homicidal Thoughts: denies homicidal thoughts Hallucinations: no auditory hallucinations and no visual hallucinations Cognition: attention grossly intact and language grossly intact Estimated Intelligence: consistent with education level Insight: + limited insight Judgement: + limited judgement Vital Signs (Past 24 Hours) Last Vital Signs Temp 37.3 C 06/30/21 06:00 Pulse 114 H 06/30/21 06:37 Resp 16 06/30/21 06:00 BP 140/95 06/30/21 06:37 Pulse Ox 99 06/25/21 03:41 Results & Data ([facility]) Current Inpatient Medications Current Inpatient Medications: Current Inpatient Medications Acetaminophen (Acetaminophen 325 Mg Tab) 650 mg PO Q4H PRN PRN Reason: Headache or Minor Fever Stop: 07/25/21 03:26 Al Hydrox/Mg Hydrox/Simethicone (Aluminum/Magnesium Susp 30 Ml Udc) 30 ml PO Q4H PRN PRN Reason: GI Upset Stop: 07/25/21 03:26 Aripiprazole (Aripiprazole 10 Mg Tab) 10 mg PO QAM AKANKSHA Stop: 07/30/21 08:59 Last Admin: 06/30/21 09:25 Dose: 10 mg Documented by: Atorvastatin Calcium (Atorvastatin 10 Mg Tab) 10 mg PO DAILY AKANKSHA Stop: 07/25/21 12:29 Last Admin: 06/30/21 09:25 Dose: 10 mg Documented by: Bismuth Subsalicylate (Bismuth Subsalicylate Liqd 236 Ml) 15 ml PO PRN PRN PRN Reason: Loose Stool Stop: 07/25/21 03:26 Hydroxyzine HCl (Hydroxyzine Hcl 25 Mg Tab) 12.5 mg PO Q4H PRN PRN Reason: Anxiety/Insomnia Stop: 07/25/21 03:26 Last Admin: 06/29/21 23:37 Dose: 12.5 mg Documented by: Levothyroxine Sodium (Levothyroxine Sodium 125 Mcg Tablet) 125 mcg PO DAILYBB AKANKSHA Stop: 07/26/21 07:59 Last Admin: 06/30/21 09:25 Dose: 125 mcg Documented by: Lorazepam (Lorazepam 1 Mg Tab) 1 mg PO Q6 PRN PRN Reason: Anxiety Stop: 07/25/21 03:27 Last Admin: 06/27/21 09:53 Dose: 1 mg Documented by: Magnesium Hydroxide (Magnesium Hydroxide Susp 30 Ml Udc) 30 ml PO DAILY PRN PRN Reason: Constipation Stop: 07/25/21 03:26 Metformin HCl (Metformin Hcl 500 Mg Tab) 500 mg PO BIDM AKANKSHA Stop: 07/25/21 17:44 Last Admin: 06/30/21 09:25 Dose: 500 mg Documented by: Sodium Chloride (Sodium Chloride 0.65% Na Soln 45 Ml ([place])) 1 - 2 sprays NA PRN PRN PRN Reason: Nasal Dryness/Congestion Stop: 07/25/21 03:26 Mental Health & Subst Abuse Tx Psychiatrist Name of Psychiatrist: [facility] - Dr Leon Psychiatrist's Date of Appointment with Psychiatrist: 07/08/21 Time of Appointment with Psychiatrist: 1:30pm [facility] [id number] [place] [address] Therapist Name of Therapist: . Door Worker Name of Door Worker: . Post Discharge Appointments Primary Care Physician Name Of Family Doctor: MAGDY DORANTES Primary Care Date of Appointment with PCP: 07/12/21 Time of Appointment with PCP: 2pm Provider Appointment Comment: [place] [address] Contact Information Discharge Discharge Address: [address] [place] [address]
[2021-07-01] MEDS: ARIPiprazole 10 MG TAB PO SCH (08:20)
[2021-07-01] MEDS: ATORVASTATIN 10 MG TAB PO SCH (08:20)
[2021-07-01] MEDS: LEVOTHYROXINE SODIUM 125 MCG TABLET PO SCH (08:20)
[2021-07-01] MEDS: metFORMIN HCL 500 MG TAB PO SCH ×2 (09:00→17:21)
--- NOTE | 2021-07-01 16:22 | Psychiatric Progress Note ---
Date of Service July 01, 2021 Impression / Recommendations Impression 46 yo female with a history of paranoia requiring inpatient hospitalization in 2019, was stable on thorazine, now presents with anxiety (primarily due to racing thoughts and paranoia), poor sleep, and questionable med compliance. Her paranoia is directed primarily toward her . She requires inpatient hospitalization for stabilization. Given her baseline functioning, age of onset, and interepisode resolution of symtoms of relatively low dose thorazine suspect mood driven--current presentation is felt to be most consistent with MDD with psychotic features and anxious distress. 07/01/21: improvement in paranoia and anxiety especially after very productive phone call with her . She now feels safe with him and wants to start doing regular date nights and thinking about ways that they can put more time and energy into their relationship. Behavior and thoughts are organized, logical and appropriate. Found additional prn abilify helpful for anxiety last night. Plan: continue with abilify scheduled as well as option for prn for intense anxiety and low dose vistaril prn for insomnia. (1) Acute psychosis: 07/01/21: continue current medications, reviewed safety plan. Family meeting held with her and reviewed ways to help support Carissa and signs to watch for in the future including change in sleep which may necessitate a brief period of more sedating medication at qhs to help restabilize her mood. 06/30/21: add abilify 2.5 mg hs prn for evening rumination and anxiety. 06/29/21: given her goal of making hospitalization as brief as possible will go ahead with further abilify titration to 10mg qd starting tomorrow. Reduced atarax to 12.5 mg qhs prn given her sensitivity to sedating effects and her preference to avoid any other sedating medication options for help with anxiety/insomnia. 06/28/21: increase abilify to 7.5mg qd starting tomorrow. 06/27/21: continue current meds and treatment plan. 06/26/21: patient agreeable to increase Abilify to 5 mg daily. She is wary of sedation and side effects so will start tomorrow. Fasting labs reviewed. Change diet to carb consistent. 06/25/21: The patient was admitted to the [facility] ([facility] mental health unit) on q15 min checks (behavioral with suicide precautions) for safety. The patient will participate in group, recreational, and milieu therapies and will be offered additional individual and family sessions as clinically appropriate. Risks/benefits/alternatives were reviewed re: antipsychotics for mood and/or psychosis. Discussion included but was not limited to metabolic side effects, risks of TD and suicidal thoughts. There were no abnormal motor movements at baseline. Fasting glucose and lipid panel ordered for baseline monitoring. She is refusing further doses of thorazine but was agreeable to Abilify 2.5 mg today with titration to 5 mg likely tomorrow. Has prn Ativan, Vistaril, Ambien. Inventory Assets Strengths: intelligent, love for daughter Needs: outpatient therapy, mood stabilizing/antipsychotic medication. Risk Factors Assessment : Yes Substance Use Disorders: No Previous Attempt: No Family History of Suicide: No Protective Factors Assessment Responsible for Young Children: Yes Employed: Yes Supportive Family: Yes Interval History Identifying Information CARISSA PINEDA is a 46-year-old F who currently lives in [place], has a history of 1 prior psychiatric hospitalization for psychosis, and was admitted on 06/25/21 02:30 on a 201 voluntary commitment for paranoid ideation. Chief Complaint "So much better". Review of Systems Sleep Information Total Hours of Sleep: 5.5 Sleep Comments: pt with late admission. pt on q-15 minute checks Meal Information Percent Meal Consumed - Breakfast: 100 Percent Meal Consumed - Lunch: 100 Percent Meal Consumed - Dinner: 100 Nutrition Comment: pt. had cereal instead of dinner entree, which she plans to eat later. Pt. had a large lunch Subjective Subjective Patient was seen & assessed and interval progress reviewed with treatment team nursing and social work. Carissa remained agreeable to family meeting with her Leonid. Discussed her concerns of safety and reviewed him impression of events leading up to the hospitalization. Reviewed suspected diagnosis and ways that Leonid can help support Carissa after discharge and in the future. Carissa likes the idea of focusing more on their relationship as a couple by scheduling regular date nights and thinking more about how they express their love to one another (i.e. she shared that it would be helpful for her if he gives her more hugs and validates her feelings). She felt very pleased with how the phone call went and feels that her anxiety has significant improved. She feels safe with her and looks forward to trying date nights, them each doing therapy and seeing her daughter once she leaves the hospital. She also had a good pre-intake call with her new therapist who she'll be seeing twice weekly. She found the abilify helpful for racing thoughts last night in anticipation of the phone call today. No side effects. She feels the current dose of abilify is a good amount, she wouldn't want to go any higher. Likes having a prn dose of abilify available. Physical Exam Psychiatric Orientation: alert and oriented x 3 Apperance: appropriately dressed and appropriately groomed Eye Contact: good eye contact Motor Behavior: no abnormal motor movements Speech: normal rate/rhythm/volume of speech Affect: euthymic affect Mood: no depressed mood and no anxious mood Thought Process: goal directed thought process Thought Content: reality based without delusions Suicidal Thoughts: denies suicidal thoughts Homicidal Thoughts: denies homicidal thoughts Hallucinations: no auditory hallucinations and no visual hallucinations Cognition: attention grossly intact and language grossly intact Estimated Intelligence: consistent with education level Insight: + fair insight Judgement: + fair judgement Vital Signs (Past 24 Hours) Last Vital Signs Temp 36.5 C 07/01/21 06:00 Pulse 111 H 07/01/21 06:57 Resp 14 07/01/21 06:00 BP 144/105 H 07/01/21 06:57 Pulse Ox 99 06/25/21 03:41 Results & Data ([facility]) Current Inpatient Medications Current Inpatient Medications: Current Inpatient Medications Acetaminophen (Acetaminophen 325 Mg Tab) 650 mg PO Q4H PRN PRN Reason: Headache or Minor Fever Stop: 07/25/21 03:26 Last Admin: 06/30/21 22:58 Dose: 650 mg Documented by: Al Hydrox/Mg Hydrox/Simethicone (Aluminum/Magnesium Susp 30 Ml Udc) 30 ml PO Q4H PRN PRN Reason: GI Upset Stop: 07/25/21 03:26 Aripiprazole (Aripiprazole 10 Mg Tab) 10 mg PO QAM AKANKSHA Stop: 07/30/21 08:59 Last Admin: 07/01/21 08:20 Dose: 10 mg Documented by: Aripiprazole (Aripiprazole 5 Mg Tab) 2.5 mg PO HS PRN PRN Reason: Anxiety/Insomnia Stop: 07/30/21 21:59 Last Admin: 07/01/21 00:15 Dose: 2.5 mg Documented by: Atorvastatin Calcium (Atorvastatin 10 Mg Tab) 10 mg PO DAILY AKANKSHA Stop: 07/25/21 12:29 Last Admin: 07/01/21 08:20 Dose: 10 mg Documented by: Bismuth Subsalicylate (Bismuth Subsalicylate Liqd 236 Ml) 15 ml PO PRN PRN PRN Reason: Loose Stool Stop: 07/25/21 03:26 Hydroxyzine HCl (Hydroxyzine Hcl 25 Mg Tab) 12.5 mg PO Q4H PRN PRN Reason: Anxiety/Insomnia Stop: 07/25/21 03:26 Last Admin: 06/29/21 23:37 Dose: 12.5 mg Documented by: Levothyroxine Sodium (Levothyroxine Sodium 125 Mcg Tablet) 125 mcg PO DAILYBB AKANKSHA Stop: 07/26/21 07:59 Last Admin: 07/01/21 08:20 Dose: 125 mcg Documented by: Lorazepam (Lorazepam 1 Mg Tab) 1 mg PO Q6 PRN PRN Reason: Anxiety Stop: 07/25/21 03:27 Last Admin: 06/27/21 09:53 Dose: 1 mg Documented by: Magnesium Hydroxide (Magnesium Hydroxide Susp 30 Ml Udc) 30 ml PO DAILY PRN PRN Reason: Constipation Stop: 07/25/21 03:26 Metformin HCl (Metformin Hcl 500 Mg Tab) 500 mg PO BIDM AKANKSHA Stop: 07/25/21 17:44 Last Admin: 07/01/21 09:00 Dose: 500 mg Documented by: Sodium Chloride (Sodium Chloride 0.65% Na Soln 45 Ml ([place])) 1 - 2 sprays NA PRN PRN PRN Reason: Nasal Dryness/Congestion Stop: 07/25/21 03:26 Mental Health & Subst Abuse Tx Psychiatrist Name of Psychiatrist: [facility] - Dr Leon Psychiatrist's Date of Appointment with Psychiatrist: 07/08/21 Time of Appointment with Psychiatrist: 1:30pm Psychiatric Appointment Comment: [id number], [place] [address] Therapist Name of Therapist: Lina Serna LPC Therapist's Date of Therapist Appointment: 07/06/21 Time of Therapist Appointment: 1:00 p.m. Therapy Appointment Comment: [address] [place] [address] Ticket Maker Name of Ticket Maker: . Post Discharge Appointments Primary Care Physician Name Of Family Doctor: MAGDY DORANTES Primary Care Date of Appointment with PCP: 07/12/21 Time of Appointment with PCP: 2pm Provider Appointment Comment: [address] [place] [address], [place] [address] Contact Information Discharge Discharge Address: [address] [place] [address], [place] [address]
[2021-07-02] MEDS: hydrOXYzine HCl 25 MG TAB PO PRN (00:07)
[2021-07-02] MEDS: ARIPiprazole 10 MG TAB PO SCH (08:25)
[2021-07-02] MEDS: LEVOTHYROXINE SODIUM 125 MCG TABLET PO SCH (08:25)
[2021-07-02] MEDS: ATORVASTATIN 10 MG TAB PO SCH (08:25)
[2021-07-02] MEDS: metFORMIN HCL 500 MG TAB PO SCH (09:26)
--- NOTE | 2021-07-02 09:40 | Discharge Summary ---
Date of Service July 02, 2021 History of Present Illness Saúl was seen in 2019 on consult service while on the medical floor for a first break psychosis, similar presentation in that mainly endorsed anxiety and stress, ultimately impacting sleep and she was transferred to the [facility] following medical clearance. She states that [facility] "was not good, let's leave it at that" but was stabilized on thorazine and taking consistently since without recurrence. She reports that her marriage "hasn't been good, I'm not going back there" for some time but noted severe stress and anxiety in past 1 week. During that time she couldn't stay asleep and when she would be up at night she'd make plans for Thanksgiving and also write comments about her and safety on sticky notes with a plan to pass them to her family so they'd get the message. She took them to her brother's for Thanksgiving in a [employer] back and "I plastered the place with them". She is very positive and protective of her 5-year-old daughter. She has reportedly accused of having an affair and believes he was "messing" with her antipsychotic medications. Family expressed concerns in ED that she hasn't been as compliant, she admits that feels more sedated than usual with it and that her concentration and motivation have been poor. She is very focussed on her blood sugars being too high (even when non fasting was 140 in ED and she was reassured) as her father in law recently had hyperglycemic episode and they had to activate EMS. Other stressors include work and her best friend's wedding plans. "I feel like I'm leaving her down as he (referring to ) won't let me call her even". 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 She denies feeling hopeless or suicidal but does feel guilty. She noted benefit from Ativan prn in ED and upon arrival to med floor with Vistaril prn. She was able to sleep but anxious thoughts continue to race. Physical Exam Vital Signs (Past 24 Hours) Last Vital Signs Temp 36.6 C 07/02/21 09:31 Pulse 94 H 07/02/21 09:31 Resp 16 07/02/21 09:31 BP 139/99 07/02/21 09:31 Pulse Ox 99 07/02/21 09:31 See admission H&P and DOD summary. Principal Diagnosis Major Depressive Disorder with psychotic features and anxious distress Psychiatric Data See daily stay summary. In short, safety was maintained and the patient was cooperative with care. She initially presented with significant anxiety with ruminations, low mood with guilt and paranoid ideation with concerns about the safety of her home and concerns about her . Extensive review was done for any trauma history and/or domestic violence warning signs with Saúl with no evidence for abuse or lack of safety at home for Saúl or her daughter. Rather as her stay progressed these concerns and paranoia lessened significantly to the point that she then wanted to do a family meeting with her and during the call noted excitement at being able to return home, interest in scheduling more time for them to spend as a couple doing regular date nights and reviewing ways to support her mental health moving forward. She is also looking forward to starting therapy. Depressive symptoms improved significantly after starting abilify so an additional antidepressant was not started but could be considered in the future, as an alternative to abilify, if she remains stable. We reviewed that in the past a similar episode occurred in the context of depressed mood and the main warning sign was decreased sleep with increased anxiety. When this occurs Saúl becomes very perseverative and fearful about medications which can make her over-sedated at night and worries she will be unable to wake up if there is some type of danger or if her daughter needs her. Discussed plan that if sleep begins to change in the future (consistently less than 7 hours per night) that she could consider a short-term, 5-7 day duration, of sedating night time medication for sleep (like olanzapine) with safety plan of her being at home overnight and able to wake should their daughter need anything. Medication changes included initiation of abilify with additional prn available and they tolerated this well. A family session was held and safety plan was completed prior to discharge. Baseline labs of fasting glucose, HbA1c, fasting lipid profile, and weight were preformed and WNL with exception of elevated glucose (126) and elevated HbA1c (6%). Recommend repeat weight in one month. Recommend repeat fasting glucose, HbA1c and fasting lipid profile every 12 weeks and then annually. If symptoms arise recommend checking BP, EKG, prolactin level as clinically indicated or relevant. Day of Discharge Assessment Today the patient voices readiness for discharge. They note improvement in mood and anxiety. They deny thoughts of harm to self or others. They feel safe retu rning home and are excited to see their daughter and . Thoughts are organized and they are clinically improved from admission. There is no evidence of psychosis or paranoid ideation. They improved in the hospital with support and medication adjustments. They agree to take medications as prescribed and keep follow-up appointments. At the time of the discharge they are deemed to be stable and appropriate for outpatient level of care. They are not deemed to be at imminent risk of harm to self or others. They are aware of emergency and crisis services. Knows to call 911 or go to nearest emergency care center if in a crisis which cannot be handled as an outpatient. Advance Directives Advance Directives Information Provided: Yes Advance Directives: No Mental Health Advance Directive: No Advance Directives on File: No Living Will: No Power of Tobacco Blender: No Advance Directives Reason:: Declines as Mental Health Visit. Risk Factors Assessment : Yes Do You Have Access To A Gun?: No Health Problems: Yes Mental Health Diagnoses: Yes Substance Use Disorders: No Previous Attempt: No Family History of Suicide: No Previous Psychiatric Hospitalization: Yes Hopelessness: No Protective Factors Assessment Responsible for Young Children: Yes Employed: Yes Supportive Family: Yes Discharge Data Lab Results 06/24/21 06/24/21 06/24/21 23:03 23:19 23:19 WBC RBC Hgb Hct MCV MCH MCHC RDW Std Deviation RDW Coeff of John Plt Count MPV Immature Gran % (Auto) Neut % (Auto) Lymph % (Auto) [place] % (Auto) Eos % (Auto) Baso % (Auto) Neut # (Auto) Lymph # (Auto) [place] # (Auto) Eos # (Auto) Baso # (Auto) Immature Gran # (Auto) Sodium Potassium Chloride Carbon Dioxide Anion Gap BUN Creatinine Est Cr Clr Drug Dosing Est GFR ( Amer) Est GFR (Non-Af Amer) BUN/Creatinine Ratio Glucose POC Glucose 146 H Estimat Average Glucose Hemoglobin A1c Calcium Total Bilirubin AST ALT Alkaline Phosphatase Total Protein Albumin Globulin Albumin/Globulin Ratio Triglycerides Cholesterol LDL Cholesterol, Calc VLDL Cholesterol, Calc HDL Cholesterol Cholesterol/HDL Ratio TSH HCG, Qual Urine Color Yellow Urine Appearance Clear Urine pH 7.0 Ur Specific [place] 1.002 Urine Protein Negative Urine Glucose (UA) Negative Urine Ketones Negative Urine Blood Negative Urine Nitrite Negative Urine Bilirubin Negative Urine Urobilinogen Negative Ur Leukocyte Esterase Negative Salicylates Urine Opiates Screen Neg Ur Methadone, Qual Neg Acetaminophen Urine Barbiturates Neg Ur Phencyclidine (PCP) Neg U Amphetamin/Meth Scrn Neg MDMA (Ecstasy) Screen Neg U Benzodiazepines Scrn Neg Ur Cocaine Metabolite Neg U Marijuana (THC) Screen Neg Ethyl Alcohol mg/dL SARS-CoV-2, RNA, NAAT 06/24/21 06/24/21 06/24/21 23:53 23:53 23:53 WBC 10.49 RBC 4.47 Hgb 14.2 Hct 40.5 MCV 90.6 MCH 31.8 MCHC 35.1 RDW Std Deviation 40.8 RDW Coeff of John 12.3 Plt Count 268 MPV 10.6 H Immature Gran % (Auto) 0.2 Neut % (Auto) 73.4 Lymph % (Auto) 20.5 [place] % (Auto) 5.1 Eos % (Auto) 0.6 Baso % (Auto) 0.2 Neut # (Auto) 7.70 H Lymph # (Auto) 2.15 [place] # (Auto) 0.54 Eos # (Auto) 0.06 Baso # (Auto) 0.02 Immature Gran # (Auto) 0.02 Sodium 137 Potassium 3.2 L Chloride 104 Carbon Dioxide 25 Anion Gap 8.0 BUN 9 Creatinine 0.65 Est Cr Clr Drug Dosing 118.8 Est GFR ( Amer) 121.7 Est GFR (Non-Af Amer) 105.0 BUN/Creatinine Ratio 14.2 Glucose 189 H POC Glucose Estimat Average Glucose Hemoglobin A1c Calcium 8.7 Total Bilirubin 0.6 AST 15 ALT 35 Alkaline Phosphatase 96 Total Protein 7.9 Albumin 3.9 Globulin 4.0 Albumin/Globulin Ratio 1.0 Triglycerides Cholesterol LDL Cholesterol, Calc VLDL Cholesterol, Calc HDL Cholesterol Cholesterol/HDL Ratio TSH 1.660 HCG, Qual Urine Color Urine Appearance Urine pH Ur Specific [place] Urine Protein Urine Glucose (UA) Urine Ketones Urine Blood Urine Nitrite Urine Bilirubin Urine Urobilinogen Ur Leukocyte Esterase Salicylates < 1.7 L Urine Opiates Screen Ur Methadone, Qual Acetaminophen < 2 L Urine Barbiturates Ur Phencyclidine (PCP) U Amphetamin/Meth Scrn MDMA (Ecstasy) Screen U Benzodiazepines Scrn Ur Cocaine Metabolite U Marijuana (THC) Screen Ethyl Alcohol mg/dL SARS-CoV-2, RNA, NAAT 06/24/21 06/24/21 06/25/21 23:53 23:53 01:20 WBC RBC Hgb Hct MCV MCH MCHC RDW Std Deviation RDW Coeff of John Plt Count MPV Immature Gran % (Auto) Neut % (Auto) Lymph % (Auto) [place] % (Auto) Eos % (Auto) Baso % (Auto) Neut # (Auto) Lymph # (Auto) [place] # (Auto) Eos # (Auto) Baso # (Auto) Immature Gran # (Auto) Sodium Potassium Chloride Carbon Dioxide Anion Gap BUN Creatinine Est Cr Clr Drug Dosing Est GFR ( Amer) Est GFR (Non-Af Amer) BUN/Creatinine Ratio Glucose POC Glucose Estimat Average Glucose Hemoglobin A1c Calcium Total Bilirubin AST ALT Alkaline Phosphatase Total Protein Albumin Globulin Albumin/Globulin Ratio Triglycerides Cholesterol LDL Cholesterol, Calc VLDL Cholesterol, Calc HDL Cholesterol Cholesterol/HDL Ratio TSH HCG, Qual Negative Urine Color Urine Appearance Urine pH Ur Specific [place] Urine Protein Urine Glucose (UA) Urine Ketones Urine Blood Urine Nitrite Urine Bilirubin Urine Urobilinogen Ur Leukocyte Esterase Salicylates Urine Opiates Screen Ur Methadone, Qual Acetaminophen Urine Barbiturates Ur Phencyclidine (PCP) U Amphetamin/Meth Scrn MDMA (Ecstasy) Screen U Benzodiazepines Scrn Ur Cocaine Metabolite U Marijuana (THC) Screen Ethyl Alcohol mg/dL < 3.0 SARS-CoV-2, RNA, NAAT NEGATIVE 06/26/21 06/26/21 06/28/21 07:34 07:34 02:32 WBC RBC Hgb Hct MCV MCH MCHC RDW Std Deviation RDW Coeff of John Plt Count MPV Immature Gran % (Auto) Neut % (Auto) Lymph % (Auto) [place] % (Auto) Eos % (Auto) Baso % (Auto) Neut # (Auto) Lymph # (Auto) [place] # (Auto) Eos # (Auto) Baso # (Auto) Immature Gran # (Auto) Sodium 138 Potassium 4.1 D Chloride 106 Carbon Dioxide 23 Anion Gap 9.0 BUN Creatinine Est Cr Clr Drug Dosing Est GFR ( Amer) Est GFR (Non-Af Amer) BUN/Creatinine Ratio Glucose POC Glucose 126 H Estimat Average Glucose 126 Hemoglobin A1c 6.0 H Calcium Total Bilirubin AST ALT Alkaline Phosphatase Total Protein Albumin Globulin Albumin/Globulin Ratio Triglycerides 103 Cholesterol 126 LDL Cholesterol, Calc 51 VLDL Cholesterol, Calc 21 HDL Cholesterol 54 Cholesterol/HDL Ratio 2 TSH HCG, Qual Urine Color Urine Appearance Urine pH Ur Specific [place] Urine Protein Urine Glucose (UA) Urine Ketones Urine Blood Urine Nitrite Urine Bilirubin Urine Urobilinogen Ur Leukocyte Esterase Salicylates Urine Opiates Screen Ur Methadone, Qual Acetaminophen Urine Barbiturates Ur Phencyclidine (PCP) U Amphetamin/Meth Scrn MDMA (Ecstasy) Screen U Benzodiazepines Scrn Ur Cocaine Metabolite U Marijuana (THC) Screen Ethyl Alcohol mg/dL SARS-CoV-2, RNA, NAAT Hospital Course (1) Acute psychosis: (2) Severe recurrent major depressive disorder with psychotic features with anxious distress: 07/01/21: continue current medications: abilify 10 mg qd, abilify 2.5 mg daily prn and vistaril 12.5 mg hs prn. reviewed safety plan. Family meeting held with her and reviewed ways to help support Saúl and signs to watch for in the future including change in sleep which may necessitate a brief period of more sedating medication at qhs to help restabilize her mood. 06/30/21: add abilify 2.5 mg hs prn for evening rumination and anxiety. 06/29/21: given her goal of making hospitalization as brief as possible will go ahead with further abilify titration to 10mg qd starting tomorrow. Reduced atarax to 12.5 mg qhs prn given her sensitivity to sedating effects and her preference to avoid any other sedating medication options for help with anxiety/insomnia. 06/28/21: increase abilify to 7.5mg qd starting tomorrow. 06/27/21: continue current meds and treatment plan. 06/26/21: patient agreeable to increase Abilify to 5 mg daily. She is wary of sedation and side effects so will start tomorrow. Fasting labs reviewed. Change diet to carb consistent. 06/25/21: The patient was admitted to the [facility] on q15 min checks (behavioral with suicide precautions) for safety. The patient will participate in group, recreational, and milieu therapies and will be offered additional individual and family sessions as clinically appropriate. Risks/benefits/alternatives were reviewed re: antipsychotics for mood and/or psychosis. Discussion included but was not limited to metabolic side effects, risks of TD and suicidal thoughts. There were no abnormal motor movements at baseline. Fasting glucose and lipid panel ordered for baseline monitoring. She is refusing further doses of thorazine but was agreeable to Abilify 2.5 mg today with titration to 5 mg likely tomorrow. Has prn Ativan, Vistaril, Ambien. Mental Health & Subst Abuse Tx Psychiatrist Name of Psychiatrist: [facility] - Dr Leon Psychiatrist's Date of Appointment with Psychiatrist: 07/08/21 Time of Appointment with Psychiatrist: 1:30pm Psychiatric Appointment Comment: [facility] [address], [place] [address] Therapist Name of Therapist: Lina Serna LPC Therapist's Date of Therapist Appointment: 07/06/21 Time of Therapist Appointment: 1:00 p.m. Therapy Appointment Comment: [address] [place] [id number] Windows Support Engineer Name of Windows Support Engineer: . Post Discharge Appointments Primary Care Physician Name Of Family Doctor: MAGDY DORANTES Primary Care Date of Appointment with PCP: 07/12/21 Time of Appointment with PCP: 2pm Provider Appointment Comment: [address] [place] [id number] Contact Information Discharge Discharge Address: [address] [place] [address] Discharge Plan Discharge Items Patient Disposition: Home - Self-Care Reason For Visit: PSYCHOTIC DISORDER Discharge Diagnosis: Major Depressive Disorder with psychotic features and anxious distress Condition on Discharge: Good Activity: Resume your previous activity Non-emergency contact: Primary Care Provider, Psychiatrist and Therapist Call non-emergency contact if: you have any medication questions and your symptoms worsen Follow-up/Referrals: Felicitas Aguirre CRNP [Primary Care Provider] - Diet: Carb Consistent or DM2 Addtl Attending Provider Instructions: SPECIAL CARE INSTRUCTIONS: 1. Follow through with your scheduled aftercare appointments. If unable to keep an appointment, please call to reschedule. 2. Take your medication only as prescribed. Medication should not be changed or stopped without the approval of your doctor. In the event of worsening symptoms or concerns about side effects, contact your doctor immediately. 3. Utilize new healthy coping skills, anger management skills, and stress management skills learned during your hospitalization. Journal feelings and process them with a support person. Identify stressors or situations that may result in relapse, deterioration or inappropriate behaviors and develop a plan to deal with those issues. 4. If your coping skills are ineffective and you are in crisis, contact your outpatient providers for direction. If unable to reach your providers, please call the [facility] CRISIS LINE AT , go to the [facility] walk-in center at [address], [address], [place], or go to the closest Emergency Room. 5. Avoid alcohol and un-prescribed drugs. 6. You have been provided with the Mental Health Advance Directives Pamphlet for your review. 7. Your condition is stable for discharge to outpatient level of care, but recovery is an ongoing process. Ifthoughts to harm yourself or others return, follow the safety plan developed during your stay. Planning for a safe return home includes securing weapons. Our treatment team recommends weaponsbe removed from the home until your outpatient provider reassesses your progress. In rare cases where the items themselvescannot be removed, guns and ammunitionshould be secured separatelyand keys stored by a reliable personoutside of the home. If you were admitted on an involuntary commitment, the police or other legal authorities may be involved in this process. AFTERCARE APPOINTMENTS: * Please call your insurance company prior to your scheduled appointment to confirm your aftercare providers are covered. Take your insurance information to your appointments. WHO TO CALL AND WHEN: Medical Emergencies: For questions or emergencies related to your hospital stay, please contact the Inpatient Behavioral Health Unit at [phone]. A wool buyer is on-call 20/02 for the Behavioral Health Unit for emergencies At any time you feel your situation is an emergency, you may also call 911 immediately. Pending Studies at Discharge: No Stand-Alone Forms: My [facility] Medications and DC Order Prescriptions: New hydroxyzine HCl 25 mg Tablet 12.5 mg PO DAILY PRN (Reason: anxiey/insomnia) 30 Days Qty: 15 RF: 0 aripiprazole [Abilify] 10 mg Tablet 10 mg PO QAM 30 Days Qty: 30 RF: 0 aripiprazole [Abilify] 5 mg Tablet 2.5 mg PO HS PRN (Reason: anxiety) 30 Days Qty: 15 RF: 0 Continued levothyroxine 125 mcg tablet 125 mcg PO QAM Qty: 90 RF: 3 metformin 500 mg tablet 500 mg PO BID Qty: 60 RF: 5 atorvastatin 10 mg tablet 10 mg PO DAILY Qty: 90 RF: 3 Mirena 20 mcg/24 hours (5 yrs) 52 mg intrauterine device 20 mcg IU DIRECTED RF: 0 (DME) blood-glucose meter [OneTouch Verio Flex meter] Misc See Rx Instructions .Route Qty: 1 RF: 0 (DME) lancets [Accuris NetworksTouch Delica Lancets] 30 gauge misc See Rx Instructions .Route Qty: 100 RF: 0 (DME) OneTouch Verio test strips Strip See Rx Instructions .Route Qty: 50 RF: 1 Discontinued benztropine 1 mg tablet 1 mg PO DAILY Qty: 30 RF: 2 chlorpromazine 25 mg tablet 25 mg PO BID Qty: 30 RF: 2 chlorpromazine 50 mg tablet 50 mg PO HS Qty: 30 RF: 2 zolpidem 10 mg Tablet 10 mg PO HS PRN (Reason: Insomnia) RF: 0 Discharge Orders: Discharge Order (Routine); Ordered 07/02/21 Ordered By: Nancy Vela/Other Patient Handouts: High Blood Sugar (Hyperglycemia), Hypoglycemia (Low Blood Sugar), Managing Type 2 Diabetes, Anxiety Disorders Tx Therapy, Understanding Anxiety Disorders, Diabetes: Meal Planning, Managing Stress When You Have Diabetes Admission Data Admit Date/Time: 06/25/21 02:30 Attending Provider: Nancy Campbell Admit Provider: Usha Johnston Primary Care Provider: Felicitas Aguirre Other Interventions: Discharge Summary Assessment (RN) Last Done: 07/02/21 09:31 Coding Level of Care Code 43222 D/C day mgmt > 30 min Diagnoses Acute psychosis F23 Severe recurrent major depressive disorder with psychotic features with anxious distress F33.3 Time Spent (min) 45
== END 2021-07-02 10:05 | disposition home or self-care (01) | DRG 885 ==
LOC: ED 21:59 → SUATTDRO 06-25 02:30 → 3S 06-25 02:30